=== PATIENT | male | born 1935 | race Caucasian/White ===

== ENCOUNTER 2019-02-06 15:45 | Emergency (ER) | payer MEDICARE ==
[~2019-02-06] VITALS: Ht 188 cm; Wt 88.6 kg
--- NOTE | 2019-02-06 17:13 | NUR ---
Pt reports pain to right ankle and top of foot that began this AM. Pt has full ROM. States pain subsides when walking and was able to go bowling this afternoon. Pain comes back when sitting still. No swelling noted. Pedal pulses palpable and skin is warm to the touch. cap refill <3 seconds. Pt has a hx of gout.
--- NOTE | 2019-02-06 17:34 | NUR ---
Doppler able to find faint dorsalis pedis pulse. Pt reports prior hx of poor vascular flow to RLE. States he has been seen for it before and MD did not think vascular intervention was necessary at the time.
[2019-02-06 19:42] VITALS: BP 193/75
== END 2019-02-06 19:44 | disposition home or self-care (01) ==
LOC: ER 15:46
DX: M25.571 Pain in right ankle and joints of right foot (principal); X50.1XXA Overexertion from prolonged static or awkward postures, initial encounter; Y93.89 Activity, other specified; Y92.89 Other specified places as the place of occurrence of the external cause; Y99.8 Other external cause status
CPT/HCPCS: 93971; 99284

== ENCOUNTER 2019-03-05 15:00 | Emergency (ER) | payer MEDICARE, OTHER ==
[~2019-03-05] VITALS: Ht 188 cm; Wt 90.0 kg
[2019-03-05 16:47] LABS: CLARITY,URINE CLOUDY (Clear); COLOR,URINE YELLOW (Yellow); GLUCOSE, URINE NEGATIVE (Neg); KETONES,URINE NEGATIVE (Neg); LEUKOCYTE ESTERASE ,URINE SMALL (Neg); NITRITES, URINE POSITIVE (Neg); OCCULT BLOOD,URINE LARGE (Neg); PROTEIN,URINE 100 mg/dl (Neg); UROBILINOGEN,URINE 0.2 E.U/dL (0.2-1.0)
[2019-03-05 16:50] LABS: UA COLLECTION TYPE URINAL
[2019-03-05 16:59] LABS: BACTERIA,URINE 2+ /HPF (Neg); RBC,URINE TNTC /HPF (0-2); SQUAMOUS EPITHELIAL CELL,UR FEW /LPF (FEW); WBC CLUMPS,URINE MANY /HPF (NEGATIVE); WBC,URINE TNTC /HPF (0-4)
[2019-03-05] MEDS ORDERED: cephalexin 250mg capsule PO ONE (17:10)
[2019-03-05] MEDS ORDERED: CEPH500C5 PO (17:11)
== END 2019-03-05 17:23 | disposition home or self-care (01) ==
LOC: ER 15:01
DX: N30.91 Cystitis, unspecified with hematuria (principal); N48.89 Other specified disorders of penis
CPT/HCPCS: 81001; 87077; 87088; 87186; 99283

== ENCOUNTER 2020-02-09 01:58 | Emergency (ER) | payer MEDICARE, OTHER ==
[~2020-02-09] VITALS: Ht 188 cm; Wt 88.2 kg
[~2020-02-09 01:58] MED LIST: CEPH500C5 PO
[2020-02-09 03:47] LABS: BASOPHILS % (AUTO) 0.3 % (0-1); EOSINOPHILS # (AUTO) 0.2 X10'3 (0-0.9); EOSINOPHILS % (AUTO) 4.1 % (0-6); HEMATOCRIT 42.9 % (42.0-52.0); HEMOGLOBIN 14.3 g/dl (14.0-17.9); LYMPHOCYTES % (AUTO) 35.7 % (21-51); MEAN CORPUSCULAR HEMOGLOBIN 29.5 PG (27.0-31.0); MEAN CORPUSCULAR HGB CONC 33.4 g/dL (33.0-36.5); MEAN CORPUSCULAR VOLUME 88.2 FL (78-98); MEAN PLATELET VOLUME 9.4 FL (7.4-10.4); MONOCYTES # (AUTO) 0.4 X10'3 (0-0.9); MONOCYTES % (AUTO) 6.9 % (2-12); PLATELET COUNT 139 X10'3 (140-440); RED BLOOD COUNT 4.86 X10'6 (4.70-6.10); RED CELL DISTRIBUTION WIDTH 14.2 % (11.5-14.5); WHITE BLOOD COUNT 5.6 X10'3 (4.5-11.0)
[2020-02-09 04:00] LABS: ALANINE AMINOTRANSFERASE 13 U/L (12-78); ALBUMIN 3.7 G/DL (3.4-5.0); ALBUMIN/GLOBULIN RATIO 0.9 (1.1-1.5); ALKALINE PHOSPHATASE 83 IU/L (46-116); ANION GAP 5 (8-16); ASPARTATE AMINO TRANSFERASE 23 U/L (10-37); BILIRUBIN,TOTAL 0.4 MG/DL (0.1-1.0); BLOOD UREA NITROGEN 35 MG/DL (7-18); BUN/CREATININE RATIO 16.4 (5.4-32.0); CHLORIDE 105 MMOL/L (99-107); CREATININE 2.13 MG/DL (0.60-1.10); GLUCOSE 107 MG/DL (70-104); POTASSIUM 4.2 MMOL/L (3.5-5.1); SODIUM 144 MMOL/L (135-145); TOTAL CARBON DIOXIDE 33.8 MMOL/L (24-32); TOTAL PROTEIN 7.7 G/DL (6.4-8.2); eGFR 30 ML/MIN
[2020-02-09 04:16] VITALS: BP 131/56
== END 2020-02-09 04:21 | disposition home or self-care (01) ==
LOC: ER 01:58
DX: N17.9 Acute kidney failure, unspecified (principal); N18.9 Chronic kidney disease, unspecified; I50.9 Heart failure, unspecified; M79.605 Pain in left leg; M79.604 Pain in right leg; R22.41 Localized swelling, mass and lump, right lower limb; R22.42 Localized swelling, mass and lump, left lower limb; Z79.899 Other long term (current) drug therapy
CPT/HCPCS: 36415; 80053; 83880; 84484; 85025; 99284; 99285

== ENCOUNTER 2020-02-15 22:58 | Emergency (ER) | payer MEDICARE, OTHER ==
[~2020-02-15] VITALS: Ht 188 cm; Wt 88.3 kg
[2020-02-15] MEDS ORDERED: TRAM50TA2 PO (23:32)
[2020-02-15 23:45] VITALS: BP 145/78
== END 2020-02-15 23:46 | disposition home or self-care (01) ==
LOC: ER 22:58
DX: M25.561 Pain in right knee (principal); M25.562 Pain in left knee; M25.572 Pain in left ankle and joints of left foot; M25.571 Pain in right ankle and joints of right foot; Z79.2 Long term (current) use of antibiotics; Z79.899 Other long term (current) drug therapy
CPT/HCPCS: 99284

== ENCOUNTER 2020-02-21 13:05 | Emergency (ER) | payer MEDICARE, OTHER ==
[~2020-02-21] VITALS: Ht 188 cm; Wt 93.6 kg
[2020-02-21 13:45] VITALS: BP 177/70
== END 2020-02-21 14:12 | disposition home or self-care (01) ==
LOC: ER 13:05
DX: M70.52 Other bursitis of knee, left knee (principal); M10.9 Gout, unspecified
CPT/HCPCS: 99281

== ENCOUNTER 2020-02-27 01:21 | Emergency (ER) | payer MEDICARE, OTHER ==
[~2020-02-27] VITALS: Ht 188 cm; Wt 95.0 kg
[2020-02-27 01:52] LABS: BASOPHILS % (AUTO) 0.4 % (0-1); EOSINOPHILS # (AUTO) 0.2 X10'3 (0-0.9); EOSINOPHILS % (AUTO) 3.9 % (0-6); HEMATOCRIT 39.4 % (42.0-52.0); HEMOGLOBIN 13.3 g/dl (14.0-17.9); LYMPHOCYTES # (AUTO) 2.6 X10'3 (1.1-4.8); LYMPHOCYTES % (AUTO) 45.1 % (21-51); MEAN CORPUSCULAR HEMOGLOBIN 30.2 PG (27.0-31.0); MEAN CORPUSCULAR HGB CONC 33.8 g/dL (33.0-36.5); MEAN CORPUSCULAR VOLUME 89.2 FL (78-98); MEAN PLATELET VOLUME 9.1 FL (7.4-10.4); MONOCYTES # (AUTO) 0.5 X10'3 (0-0.9); MONOCYTES % (AUTO) 7.7 % (2-12); NEUTROPHILS # (AUTO) 2.5 X10'3 (1.8-7.7); NEUTROPHILS % (AUTO) 42.9 % (42-75); PLATELET COUNT 169 X10'3 (140-440); RED BLOOD COUNT 4.41 X10'6 (4.70-6.10); RED CELL DISTRIBUTION WIDTH 14.5 % (11.5-14.5); WHITE BLOOD COUNT 5.8 X10'3 (4.5-11.0)
[2020-02-27 02:04] LABS: ALANINE AMINOTRANSFERASE 16 U/L (12-78); ALBUMIN 3.6 G/DL (3.4-5.0); ALBUMIN/GLOBULIN RATIO 0.9 (1.1-1.5); ANION GAP 12 (8-16); ASPARTATE AMINO TRANSFERASE 16 U/L (10-37); BILIRUBIN,TOTAL 0.5 MG/DL (0.1-1.0); BLOOD UREA NITROGEN 22 MG/DL (7-18); BUN/CREATININE RATIO 11.8 (5.4-32.0); CALCIUM 8.6 MG/DL (8.5-10.1); CHLORIDE 104 MMOL/L (99-107); CREATININE 1.87 MG/DL (0.60-1.10); GLUCOSE 116 MG/DL (70-104); POTASSIUM 3.6 MMOL/L (3.5-5.1); SODIUM 145 MMOL/L (135-145); TOTAL CARBON DIOXIDE 29.1 MMOL/L (24-32); TOTAL PROTEIN 7.6 G/DL (6.4-8.2); eGFR 34 ML/MIN
[2020-02-27 02:29] LABS: ALKALINE PHOSPHATASE 86 IU/L (46-116)
[2020-02-27] MEDS ORDERED: FURO-150 PO (02:32)
[2020-02-27] MEDS ORDERED: POTA20TA19 PO (02:32)
[2020-02-27 02:38] VITALS: BP 178/63
== END 2020-02-27 02:45 | disposition home or self-care (01) ==
LOC: ER 01:21
DX: N18.9 Chronic kidney disease, unspecified (principal); R60.0 Localized edema; M10.9 Gout, unspecified; Z79.899 Other long term (current) drug therapy
CPT/HCPCS: 36415; 80053; 85025; 93971; 99284

== ENCOUNTER 2020-03-05 22:09 | Emergency (ER) | payer MEDICARE, OTHER ==
[~2020-03-05] VITALS: Ht 188 cm; Wt 89.5 kg
[~2020-03-05 22:09] MED LIST changes: +FURO-150 PO; +POTA20TA19 PO
--- NOTE | 2020-03-05 23:18 | NUR ---
awaiting provider, vs updated
[2020-03-05 23:58] LABS: BASOPHILS % (AUTO) 0.4 % (0-1); EOSINOPHILS # (AUTO) 0.1 X10'3 (0-0.9); EOSINOPHILS % (AUTO) 1.6 % (0-6); HEMATOCRIT 37.4 % (42.0-52.0); HEMOGLOBIN 12.8 g/dl (14.0-17.9); LYMPHOCYTES % (AUTO) 27.5 % (21-51); MEAN CORPUSCULAR HEMOGLOBIN 30.1 PG (27.0-31.0); MEAN CORPUSCULAR HGB CONC 34.2 g/dL (33.0-36.5); MEAN CORPUSCULAR VOLUME 87.9 FL (78-98); MEAN PLATELET VOLUME 9.4 FL (7.4-10.4); MONOCYTES # (AUTO) 0.4 X10'3 (0-0.9); NEUTROPHILS # (AUTO) 4.7 X10'3 (1.8-7.7); NEUTROPHILS % (AUTO) 64.5 % (42-75); PLATELET COUNT 155 X10'3 (140-440); RED BLOOD COUNT 4.26 X10'6 (4.70-6.10); RED CELL DISTRIBUTION WIDTH 14.2 % (11.5-14.5); WHITE BLOOD COUNT 7.3 X10'3 (4.5-11.0)
[2020-03-06 00:18] LABS: ALANINE AMINOTRANSFERASE 19 U/L (12-78); ALBUMIN 3.5 G/DL (3.4-5.0); ALBUMIN/GLOBULIN RATIO 0.9 (1.1-1.5); ANION GAP 8 (8-16); ASPARTATE AMINO TRANSFERASE 14 U/L (10-37); BILIRUBIN,TOTAL 0.3 MG/DL (0.1-1.0); BLOOD UREA NITROGEN 29 MG/DL (7-18); BUN/CREATININE RATIO 14.4 (5.4-32.0); CALCIUM 8.8 MG/DL (8.5-10.1); CHLORIDE 106 MMOL/L (99-107); CREATININE 2.02 MG/DL (0.60-1.10); GLUCOSE 106 MG/DL (70-104); POTASSIUM 3.8 MMOL/L (3.5-5.1); SODIUM 143 MMOL/L (135-145); TOTAL CARBON DIOXIDE 28.9 MMOL/L (24-32); TOTAL PROTEIN 7.3 G/DL (6.4-8.2); eGFR 32 ML/MIN
[2020-03-06 00:21] LABS: PARTIAL THROMBOPLASTIN TIME 26 SECONDS (22-32)
[2020-03-06 00:33] LABS: ALKALINE PHOSPHATASE 83 IU/L (46-116)
[2020-03-06 01:09] VITALS: BP 169/61
== END 2020-03-06 01:11 | disposition home or self-care (01) ==
LOC: ER 22:10
DX: J02.9 Acute pharyngitis, unspecified (principal); M79.89 Other specified soft tissue disorders; M10.9 Gout, unspecified; I50.9 Heart failure, unspecified; N18.9 Chronic kidney disease, unspecified; Z79.899 Other long term (current) drug therapy
CPT/HCPCS: 36415; 80053; 83735; 83880; 84443; 85025; 85610; 85730; 87081; 87880; 99283

== ENCOUNTER 2021-02-25 13:54 | Emergency (ER) | payer MEDICARE, OTHER ==
[~2021-02-25 13:54] MED LIST changes: +ALLO100T PO; +ATOR40TA72 PO; -CEPH500C5 PO; +CLON0.3T PO; +CLOP75TA34 PO; -FURO-150 PO; +FURO40TA4 PO; +LISI20TA28 PO; +LORA-268 PO; +POTA10TA PO; -POTA20TA19 PO
[2021-02-25 14:45] VITALS: BP 141/51
[2021-02-25 15:05] LABS: CLARITY,URINE CLOUDY (Clear); COLOR,URINE YELLOW (Yellow); GLUCOSE, URINE NEGATIVE (Neg); KETONES,URINE NEGATIVE (Neg); LEUKOCYTE ESTERASE ,URINE MODERATE (Neg); NITRITES, URINE NEGATIVE (Neg); OCCULT BLOOD,URINE LARGE (Neg); PH,URINE 6.5 (4.8-8.0); PROTEIN,URINE >=300 mg/dl (Neg)
[2021-02-25 15:28] LABS: UA COLLECTION TYPE CLN CATCH MIDSTREAM
[2021-02-25 15:29] LABS: BACTERIA,URINE FEW /HPF (Neg); MUCUS STRANDS NONE SEEN /LPF (Neg); RBC,URINE TNTC /HPF (0-2); SQUAMOUS EPITHELIAL CELL,UR FEW /LPF (FEW); WBC,URINE TNTC /HPF (0-4)
[2021-02-25] MEDS ORDERED: DOXY100C76 PO (16:16)
== END 2021-02-25 16:21 | disposition home or self-care (01) ==
LOC: ER 13:54
DX: N30.90 Cystitis, unspecified without hematuria (principal); I50.9 Heart failure, unspecified; I11.0 Hypertensive heart disease with heart failure; R31.9 Hematuria, unspecified; R30.0 Dysuria; M10.9 Gout, unspecified; Z88.8 Allergy status to other drugs, medicaments and biological substances; Z79.2 Long term (current) use of antibiotics; Z79.899 Other long term (current) drug therapy
CPT/HCPCS: 81001; 87077; 87088; 87186; 99283

== ENCOUNTER 2021-05-11 10:21 | Inpatient (IN) | payer MEDICARE, OTHER ==
[2021-05-06 16:51] LABS: BASOPHILS % (AUTO) 0.4 % (0-1); EOSINOPHILS # (AUTO) 0.2 X10'3 (0-0.9); EOSINOPHILS % (AUTO) 4.6 % (0-6); LYMPHOCYTES # (AUTO) 2.7 X10'3 (1.1-4.8); LYMPHOCYTES % (AUTO) 58.8 % (21-51); MEAN CORPUSCULAR HGB CONC 33.2 g/dL (33.0-36.5); MEAN CORPUSCULAR VOLUME 84.4 FL (78-98); MEAN PLATELET VOLUME 9.5 FL (7.4-10.4); MONOCYTES # (AUTO) 0.3 X10'3 (0-0.9); MONOCYTES % (AUTO) 7.3 % (2-12); NEUTROPHILS # (AUTO) 1.3 X10'3 (1.8-7.7); NEUTROPHILS % (AUTO) 28.9 % (42-75); PRE OP HEMATOCRIT 35.9 % (42.0-52.0); PRE OP HEMOGLOBIN 11.9 g/dL (14.0-17.9); PRE OP PLATELET COUNT 125 X10'3 (140-440); RED BLOOD COUNT 4.26 X10'6 (4.70-6.10); RED CELL DISTRIBUTION WIDTH 18.7 % (11.5-14.5)
[2021-05-06 16:58] LABS: CLARITY,URINE CLEAR (Clear); COLOR,URINE STRAW (Yellow); GLUCOSE, URINE NEGATIVE (Neg); KETONES,URINE NEGATIVE (Neg); LEUKOCYTE ESTERASE ,URINE TRACE (Neg); NITRITES, URINE NEGATIVE (Neg); OCCULT BLOOD,URINE NEGATIVE (Neg); PROTEIN,URINE NEGATIVE (Neg); UROBILINOGEN,URINE 0.2 E.U/dL (0.2-1.0)
[2021-05-06 17:01] LABS: UA COLLECTION TYPE CLN CATCH MIDSTREAM
[2021-05-06 17:02] LABS: ALBUMIN 3.8 G/DL (3.4-5.0); ALKALINE PHOSPHATASE 120 IU/L (46-116); BLOOD UREA NITROGEN 36 MG/DL (7-18); BUN/CREATININE RATIO 22.4 (5.4-32.0); CALCIUM 8.7 MG/DL (8.5-10.1); CHLORIDE 105 MMOL/L (99-107); CREATININE 1.61 MG/DL (0.60-1.10); PRE OP ALT 13 U/L (30-65); PRE OP ANION GAP 8 (8-16); PRE OP AST 13 U/L (10-37); PRE OP BILIRUB, TOTAL 0.6 MG/DL (0.0-1.0); PRE OP GLUCOSE 99 MG/DL (70-104); PRE OP POTASSIUM 4.5 MMOL/L (3.4-5.1); PRE OP SODIUM 143 MMOL/L (135-145); TOTAL CARBON DIOXIDE 30.3 MMOL/L (24-32); TOTAL PROTEIN 7.5 G/DL (6.4-8.2); eGFR 41 ML/MIN
[2021-05-06 17:03] LABS: BACTERIA,URINE FEW /HPF (Neg); MUCUS STRANDS NONE SEEN /LPF (Neg); RBC,URINE 0-2 /HPF (0-2); SQUAMOUS EPITHELIAL CELL,UR FEW /LPF (FEW); WBC,URINE 0-4 /HPF (0-4)
[2021-05-06 17:28] LABS: ANISOCYTOSIS 2+; ELLIPTOCYTES 1+; MICROCYTOSIS 1+; PLATELET ESTIMATE DECREASED; POIKILOCYTOSIS FEW
[~2021-05-11] VITALS: Ht 188 cm; Wt 76.0 kg
[2021-05-11] VITALS (8 sets, daily range): BP systolic 130–192; BP diastolic 46–75
[~2021-05-11 10:21] MED LIST changes: -CLOP75TA34 PO; +cefazolin/dext.iso 2gm/100ml IV ONE; +dry eye drops; +famotidine 20mg tablet PO ONE; +ringers solution, lacted 1,000 ML IV SCH
[2021-05-11] MEDS ORDERED: BUPIVAcaine 0.5% inj/PF 30 ML ONE (15:18)
[2021-05-11] MEDS ORDERED: fentaNYL/PF 50MCG/1 ML 2ML syringe ONE (15:23)
[2021-05-11] MEDS ORDERED: midazolam 1 mg/ML 2ml injection ONE (15:23)
[2021-05-11] MEDS ORDERED: glycopyrrolate 0.2mg/ml inj ONE (15:24)
[2021-05-11] MEDS ORDERED: etomidate 2mg/ml inj. ONE (15:24)
[2021-05-11] MEDS ORDERED: rocuronium 10mg/ml inj IV ONE (15:24)
[2021-05-11] MEDS ORDERED: ondansetron/PF 4mg/2ml inj ONE (15:24)
[2021-05-11] MEDS ORDERED: ondansetron/PF 4mg/2ml inj IV PRN (15:35)
[2021-05-11] MEDS ORDERED: ringers solution, lacted 1,000 ML IV SCH (15:35)
[2021-05-11] MEDS ORDERED: morphine 2 MG/ML inj. syringe IV PRN (15:35)
[2021-05-11] MEDS ORDERED: fentaNYL/PF 50MCG/1 ML 2ML syringe IV PRN ×2 (15:35)
[2021-05-11] MEDS ORDERED: morphine 4 MG/ML inj SYRINge IV PRN (15:35)
[2021-05-11] MEDS ORDERED: enalaprilat dihydrate 2.5mg/2ml vial IV PRN (15:35)
[2021-05-11] MEDS ORDERED: hydrALAZINE 20mg/ml inj. IV PRN (15:35)
[2021-05-11] MEDS ORDERED: BUPIVAcaine 0.5% inj/PF 30 ml vial IJ ONE (16:14)
[2021-05-11] MEDS ORDERED: labetalol 20mg/4ml (5mg/ml) syringe IV ONE (16:54)
--- NOTE | 2021-05-11 16:55 | NUR ---
ADMITTED TO PACU FROM OR ACCOMPANIED BY ANESTHESIA. INTIAL PHYSICAL ASSESSMENT DONE AND RECORDED. REPORT RECEIVED FROM ANESTHESIA.
--- NOTE | 2021-05-11 17:10 | NUR ---
DIFFICULT EMERGENCE FROM ANESTHESIA, IV PULLED OUT ATTEMPTS TO RESTART UNSUCCESSFUL. BP GRADUALLY DECREASING. BECOMING MORE ORIENTED TO TIME AND PLACE.
[2021-05-11] MEDS ORDERED: HYDROcodone/acetaminophen 10/325mg tab PO ONE (17:30)
[2021-05-11] MEDS ORDERED: HYDROcodone/acetaminophen 10/325mg tab PO PRN (17:55)
--- NOTE | 2021-05-11 18:20 | NUR ---
PACU DISCHARGE CRITERIA MET, REPORT GIVEN TO FLOOR. DENIES PAIN OR DISCOMFORT. PT IS STABLE AND ADEQUATELY RECOVERED FROM ANESTHESIA. PT HAS STABLE AIRWAY PATENCY, RESPIRATORY FUNCTION TO INCLUDE RESPIRATORY RATE AND O2 SAT. HEART RATE, BLOOD PRESSURE STABLE AND HYDRATION ADEQUATE. MENTAL STATUS IS APPROPRIATE. PAIN AND NAUSEA CONTROLLED. REFER TO PACU SPREADSHEET FOR VITAL SIGNS. SPOKE WITH PT , IS AWARE WILL BE DISCHARGED AFTER 2200, AND FLOOR WILL CALL.
--- NOTE | 2021-05-11 19:22 | NUR ---
Patient in room ORTHO 4022. I have received report from Nat YADAV and had the opportunity to ask questions and assume patient care.
--- NOTE | 2021-05-11 21:07 | NUR ---
Patient is still attempting to urinate at this time, called patients and daughter to let them know to leave their home around [phone] as they live in [place] and that I would have him ready to go regardless of if he needs a catheter or not.
--- NOTE | 2021-05-11 22:13 | NUR ---
Patient discharged to home via private vehicle. Patient was retaining urine and required a chavez catheter to be placed. Placed a leg bag and educated the patient and his daughter how to empty it and when. They verbalized understanding. Also discussed the need to follow up with Dr. Krishnamurthy in two days time to have the catheter removed. Went over activity restrictions; not lifting >20 lbs for four weeks. Also discussed splinting abdomen when he gets up from a seated position and recommended taking a stool softener if he is going to be taking narcotic pain medications. Patient was taken out in a wheelchair with no complications
== END 2021-05-11 22:05 | disposition home or self-care (01) | DRG 352 ==
LOC: PAS 10:21 → ORTHO 4S 18:26
PROVIDERS: ADMIT Surgery; ATTEND Surgery
PROC: 0YUA4JZ Supplement Bilateral Inguinal Region with Synthetic Substitute, Percutaneous Endoscopic Approach (ICD-10-PCS; principal; 2021-05-11 15:31)
DX: K40.20 Bilateral inguinal hernia, without obstruction or gangrene, not specified as recurrent (principal); I83.90 Asymptomatic varicose veins of unspecified lower extremity; Z20.822 Contact with and (suspected) exposure to COVID-19; M10.9 Gout, unspecified; R03.0 Elevated blood-pressure reading, without diagnosis of hypertension; R31.9 Hematuria, unspecified; R35.1 Nocturia
CPT/HCPCS: 36415; 80053; 81001; 82948; 85008; 85025; 87088; 87635; A4215; A4314; A4618; A6258; C1781; C9803; G0378; J2250; J2405; J3010; J3490; J7120

== ENCOUNTER 2021-05-18 19:56 | Emergency (ER) | payer MEDICARE, OTHER ==
[~2021-05-18] VITALS: Ht 188 cm; Wt 75.0 kg
[~2021-05-18 19:56] MED LIST changes: -cefazolin/dext.iso 2gm/100ml IV ONE; -famotidine 20mg tablet PO ONE; -ringers solution, lacted 1,000 ML IV SCH
[2021-05-18 21:14] LABS: ALANINE AMINOTRANSFERASE 15 U/L (12-78); ALBUMIN 3.6 G/DL (3.4-5.0); ALKALINE PHOSPHATASE 97 IU/L (46-116); ANION GAP 12 (8-16); ASPARTATE AMINO TRANSFERASE 10 U/L (10-37); BLOOD UREA NITROGEN 58 MG/DL (7-18); CALCIUM 8.1 MG/DL (8.5-10.1); CHLORIDE 102 MMOL/L (99-107); CREATININE 2.64 MG/DL (0.60-1.10); GLUCOSE 107 MG/DL (70-104); POTASSIUM 4.5 MMOL/L (3.5-5.1); SODIUM 142 MMOL/L (135-145); TOTAL CARBON DIOXIDE 27.9 MMOL/L (24-32); TOTAL PROTEIN 7.3 G/DL (6.4-8.2); eGFR 23 ML/MIN
[2021-05-18 21:18] LABS: BASOPHILS % (AUTO) 0.2 % (0-1); EOSINOPHILS # (AUTO) 0.2 X10'3 (0-0.9); HEMATOCRIT 31.9 % (42.0-52.0); HEMOGLOBIN 10.7 g/dl (14.0-17.9); LYMPHOCYTES # (AUTO) 2.3 X10'3 (1.1-4.8); LYMPHOCYTES % (AUTO) 35.1 % (21-51); MEAN CORPUSCULAR HEMOGLOBIN 28.6 PG (27.0-31.0); MEAN CORPUSCULAR HGB CONC 33.5 g/dL (33.0-36.5); MEAN CORPUSCULAR VOLUME 85.4 FL (78-98); MEAN PLATELET VOLUME 9.9 FL (7.4-10.4); MONOCYTES # (AUTO) 0.5 X10'3 (0-0.9); NEUTROPHILS # (AUTO) 3.5 X10'3 (1.8-7.7); NEUTROPHILS % (AUTO) 53.7 % (42-75); PLATELET COUNT 130 X10'3 (140-440); RED BLOOD COUNT 3.74 X10'6 (4.70-6.10); RED CELL DISTRIBUTION WIDTH 19.4 % (11.5-14.5); WHITE BLOOD COUNT 6.5 X10'3 (4.5-11.0)
[2021-05-18 22:31] LABS: PLATELET ESTIMATE DECREASED
[2021-05-18 22:32] LABS: ANISOCYTOSIS 2+; BURR CELLS 2+; ELLIPTOCYTES 1+; SCHISTOCYTES 1+
[2021-05-19] MEDS ORDERED: normal saline 1000ml 1,000 ML IV ONE (01:30)
[2021-05-19 02:49] VITALS: BP 108/37
== END 2021-05-19 03:01 | disposition home or self-care (01) ==
LOC: ER 19:57
DX: N17.9 Acute kidney failure, unspecified (principal); M54.5 Low back pain; R20.0 Anesthesia of skin; I11.0 Hypertensive heart disease with heart failure; I50.9 Heart failure, unspecified; M10.9 Gout, unspecified; Z79.899 Other long term (current) drug therapy
CPT/HCPCS: 36415; 80053; 85008; 85025; 96360; 99283; J7030

== ENCOUNTER 2021-09-22 16:54 | Emergency (ER) | payer MEDICARE, OTHER ==
[~2021-09-22] VITALS: Ht 188 cm; Wt 73.0 kg
[2021-09-22 17:34] LABS: CLARITY,URINE SLIGHTLY CLOUDY (Clear); COLOR,URINE STRAW (Yellow); GLUCOSE, URINE NEGATIVE (Neg); KETONES,URINE NEGATIVE (Neg); LEUKOCYTE ESTERASE ,URINE MODERATE (Neg); NITRITES, URINE NEGATIVE (Neg); OCCULT BLOOD,URINE LARGE (Neg); PROTEIN,URINE NEGATIVE (Neg); UA COLLECTION TYPE CLN CATCH MIDSTREAM
[2021-09-22 17:46] LABS: BASOPHILS % (AUTO) 0.3 % (0-1); EOSINOPHILS # (AUTO) 0.2 X10'3 (0-0.9); EOSINOPHILS % (AUTO) 3.8 % (0-6); HEMATOCRIT 35.3 % (42.0-52.0); HEMOGLOBIN 11.9 g/dl (14.0-17.9); LYMPHOCYTES # (AUTO) 2.2 X10'3 (1.1-4.8); LYMPHOCYTES % (AUTO) 45.6 % (21-51); MEAN CORPUSCULAR HEMOGLOBIN 28.9 PG (27.0-31.0); MEAN CORPUSCULAR HGB CONC 33.7 g/dL (33.0-36.5); MEAN CORPUSCULAR VOLUME 85.5 FL (78-98); MEAN PLATELET VOLUME 9.7 FL (7.4-10.4); MONOCYTES # (AUTO) 0.3 X10'3 (0-0.9); NEUTROPHILS # (AUTO) 2.2 X10'3 (1.8-7.7); NEUTROPHILS % (AUTO) 44.3 % (42-75); PLATELET COUNT 104 X10'3 (140-440); RED BLOOD COUNT 4.13 X10'6 (4.70-6.10); WHITE BLOOD COUNT 4.9 X10'3 (4.5-11.0)
[2021-09-22 17:49] LABS: BACTERIA,URINE 1+ /HPF (Neg); TRANSITIONAL EPI CELLS,URINE FEW /HPF
[2021-09-22 17:53] LABS: RENAL CELLS, URINE MODERATE /HPF; SQUAMOUS EPITHELIAL CELL,UR FEW /LPF (FEW)
[2021-09-22 17:54] LABS: WBC,URINE 30-50 /HPF (0-4)
[2021-09-22 17:56] LABS: WBC CLUMPS,URINE MODERATE /HPF (NEGATIVE)
[2021-09-22 18:09] LABS: ALANINE AMINOTRANSFERASE 19 U/L (12-78); ALBUMIN 3.7 G/DL (3.4-5.0); ALKALINE PHOSPHATASE 102 IU/L (46-116); ANION GAP 10 (8-16); ASPARTATE AMINO TRANSFERASE 16 U/L (10-37); BILIRUBIN,TOTAL 0.6 MG/DL (0.1-1.0); BLOOD UREA NITROGEN 33 MG/DL (7-18); BUN/CREATININE RATIO 19.3 (5.4-32.0); CALCIUM 8.7 MG/DL (8.5-10.1); CHLORIDE 103 MMOL/L (99-107); CREATININE 1.71 MG/DL (0.60-1.10); GLUCOSE 124 MG/DL (70-104); POTASSIUM 3.8 MMOL/L (3.5-5.1); SODIUM 143 MMOL/L (135-145); TOTAL PROTEIN 7.3 G/DL (6.4-8.2); eGFR 38 ML/MIN
[2021-09-22] MEDS ORDERED: CIPR-259 PO (20:33)
[2021-09-22] MEDS ORDERED: ciprofloxacin 250mg tablet PO ONE (20:40)
--- NOTE | 2021-09-22 20:41 | NUR ---
assumed care of patient. see MAR
[2021-09-22 20:53] VITALS: BP 168/92
== END 2021-09-22 20:58 | disposition home or self-care (01) ==
LOC: ER 16:54
DX: N39.0 Urinary tract infection, site not specified (principal); R30.0 Dysuria; R31.9 Hematuria, unspecified; I11.0 Hypertensive heart disease with heart failure; I50.9 Heart failure, unspecified; M10.9 Gout, unspecified; Z87.440 Personal history of urinary (tract) infections; Z60.2 Problems related to living alone; Z79.2 Long term (current) use of antibiotics; Z79.899 Other long term (current) drug therapy
CPT/HCPCS: 36415; 74176; 80053; 81001; 85025; 87077; 87088; 87186; 99284

== ENCOUNTER 2021-11-28 15:37 | Emergency (ER) | payer MEDICARE, OTHER ==
[~2021-11-28] VITALS: Ht 182.9 cm; Wt 77.1 kg
[~2021-11-28 15:37] MED LIST changes: +CEPH250T PO
[2021-11-28 15:51] VITALS: BP 187/61
[2021-11-28 16:49] LABS: HEMOGLOBIN 11.2 g/dl (14.0-17.9); WHITE BLOOD COUNT 3.3 X10'3 (4.5-11.0)
[2021-11-28 16:51] LABS: BASOPHILS % (AUTO) 0.3 % (0-1); EOSINOPHILS # (AUTO) 0.1 X10'3 (0-0.9); EOSINOPHILS % (AUTO) 2.1 % (0-6); HEMATOCRIT 33.6 % (42.0-52.0); LYMPHOCYTES # (AUTO) 1.4 X10'3 (1.1-4.8); LYMPHOCYTES % (AUTO) 43.6 % (21-51); MEAN CORPUSCULAR HEMOGLOBIN 28.8 PG (27.0-31.0); MEAN CORPUSCULAR HGB CONC 33.4 g/dL (33.0-36.5); MEAN CORPUSCULAR VOLUME 86.5 FL (78-98); MEAN PLATELET VOLUME 9.6 FL (7.4-10.4); MONOCYTES # (AUTO) 0.2 X10'3 (0-0.9); MONOCYTES % (AUTO) 5.7 % (2-12); NEUTROPHILS # (AUTO) 1.6 X10'3 (1.8-7.7); NEUTROPHILS % (AUTO) 48.3 % (42-75); PLATELET COUNT 116 X10'3 (140-440); RED BLOOD COUNT 3.88 X10'6 (4.70-6.10); RED CELL DISTRIBUTION WIDTH 18.2 % (11.5-14.5)
[2021-11-28 16:55] LABS: ALANINE AMINOTRANSFERASE 20 U/L (12-78); ALBUMIN 3.8 G/DL (3.4-5.0); ALBUMIN/GLOBULIN RATIO 1.2 (1.1-1.5); ALKALINE PHOSPHATASE 104 IU/L (46-116); ANION GAP 10 (8-16); ASPARTATE AMINO TRANSFERASE 21 U/L (10-37); BILIRUBIN,TOTAL 0.5 MG/DL (0.1-1.0); BLOOD UREA NITROGEN 41 MG/DL (7-18); BUN/CREATININE RATIO 24.1 (5.4-32.0); CALCIUM 8.5 MG/DL (8.5-10.1); CHLORIDE 107 MMOL/L (99-107); GLUCOSE 137 MG/DL (70-104); POTASSIUM 4.3 MMOL/L (3.5-5.1); SODIUM 144 MMOL/L (135-145); TOTAL PROTEIN 7.1 G/DL (6.4-8.2); eGFR 38 ML/MIN
[2021-11-28] MEDS ORDERED: CEPH250T PO (19:13)
[2021-11-28] MEDS ORDERED: cephalexin 250mg capsule PO ONE (19:15)
== END 2021-11-28 19:42 | disposition home or self-care (01) ==
LOC: ER 15:37
DX: R60.0 Localized edema (principal); L03.116 Cellulitis of left lower limb; L03.115 Cellulitis of right lower limb; I11.0 Hypertensive heart disease with heart failure; I50.9 Heart failure, unspecified; Z87.440 Personal history of urinary (tract) infections; M10.9 Gout, unspecified; Z79.899 Other long term (current) drug therapy; Z79.2 Long term (current) use of antibiotics
CPT/HCPCS: 36415; 80053; 85025; 85651; 99283

== ENCOUNTER 2021-12-14 06:42 | Inpatient (IN) | payer MEDICARE, OTHER ==
[2021-12-08 15:23] LABS: BASOPHILS % (AUTO) 0.4 % (0-1); EOSINOPHILS # (AUTO) 0.2 X10'3 (0-0.9); EOSINOPHILS % (AUTO) 4.7 % (0-6); LYMPHOCYTES % (AUTO) 53.1 % (21-51); MEAN CORPUSCULAR HEMOGLOBIN 28.8 PG (27.0-31.0); MEAN CORPUSCULAR HGB CONC 33.1 g/dL (33.0-36.5); MEAN CORPUSCULAR VOLUME 87.3 FL (78-98); MEAN PLATELET VOLUME 9.4 FL (7.4-10.4); MONOCYTES # (AUTO) 0.3 X10'3 (0-0.9); MONOCYTES % (AUTO) 7.6 % (2-12); NEUTROPHILS # (AUTO) 1.3 X10'3 (1.8-7.7); NEUTROPHILS % (AUTO) 34.2 % (42-75); PRE OP HEMATOCRIT 34.8 % (42.0-52.0); PRE OP HEMOGLOBIN 11.5 g/dL (14.0-17.9); PRE OP PLATELET COUNT 124 X10'3 (140-440); RED BLOOD COUNT 3.99 X10'6 (4.70-6.10); RED CELL DISTRIBUTION WIDTH 18.2 % (11.5-14.5)
[2021-12-08 15:31] LABS: CLARITY,URINE CLEAR (Clear); COLOR,URINE YELLOW (Yellow); GLUCOSE, URINE NEGATIVE (Neg); KETONES,URINE NEGATIVE (Neg); LEUKOCYTE ESTERASE ,URINE NEGATIVE (Neg); NITRITES, URINE NEGATIVE (Neg); OCCULT BLOOD,URINE NEGATIVE (Neg); PH,URINE 6.5 (4.8-8.0); PROTEIN,URINE NEGATIVE (Neg); UROBILINOGEN,URINE 0.2 E.U/dL (0.2-1.0)
[2021-12-08 15:31] LABS: PRE OP PROTIME 10.3 SECONDS (9.0-12.0)
[2021-12-08 15:37] LABS: ALBUMIN 3.6 G/DL (3.4-5.0); ALBUMIN/GLOBULIN RATIO 0.9 (1.1-1.5); ALKALINE PHOSPHATASE 104 IU/L (46-116); BLOOD UREA NITROGEN 31 MG/DL (7-18); BUN/CREATININE RATIO 20.4 (5.4-32.0); CALCIUM 8.5 MG/DL (8.5-10.1); CHLORIDE 104 MMOL/L (99-107); CREATININE 1.52 MG/DL (0.60-1.10); PRE OP ALT 17 U/L (30-65); PRE OP ANION GAP 9 (8-16); PRE OP AST 13 U/L (10-37); PRE OP BILIRUB, TOTAL 0.5 MG/DL (0.0-1.0); PRE OP GLUCOSE 100 MG/DL (70-104); PRE OP POTASSIUM 4.1 MMOL/L (3.4-5.1); PRE OP SODIUM 142 MMOL/L (135-145); TOTAL CARBON DIOXIDE 28.8 MMOL/L (24-32); TOTAL PROTEIN 7.5 G/DL (6.4-8.2); eGFR 44 ML/MIN
[2021-12-08 15:39] LABS: UA COLLECTION TYPE CLN CATCH MIDSTREAM
[2021-12-08 15:44] LABS: ANISOCYTOSIS 2+; PLATELET ESTIMATE DECREASED; TOTAL CELLS COUNTED 100
[~2021-12-14] VITALS: Ht 188 cm; Wt 79.7 kg
[2021-12-14] VITALS (19 sets, daily range): BP systolic 109–159; BP diastolic 36–72
[~2021-12-14 06:42] MED LIST changes: -CEPH250T PO; +FURO-149 PO; -FURO40TA4 PO; +PROP10DR4 OP; +cefazolin/dext.iso 2gm/50ml IV ONE; -dry eye drops; +famotidine 20mg tablet PO ONE; +nitroPRUSSIDE (NIPRIDE) (200MCG/ML) 100ML Drip IV SCH
[2021-12-14] MEDS: phenylephrine 50 MG in NS 250ml IVPB IV SCH (08:00)
[2021-12-14] MEDS: ringers solution, lacted 1,000 ML IV SCH ×2 (08:12→15:48)
--- NOTE | 2021-12-14 09:00 | NUR ---
DR BOONE NOTIFIED OF BILATERAL LEG REDNESS, SWELLING AND SORES. NOTIFIED THAT PT TOOK A DOUBLE DOSE OF HIS AM BLOOD PRESSURE MEDICATION CLONIDINE. NOTIFIED OF ABNORMAL LABS - PLATELETS WERE 124, CR WAS 1.52 AND BUN 31. Addendum: 12/14/21 at 1057 by Gaby Ulloa RN Amended: Links added.
[2021-12-14] MEDS ORDERED: LIDOcaine 1% (10mg/ml)w/preservative inj. 20ml MDV ONE (09:43)
[2021-12-14] MEDS ORDERED: heparin 10,000 units/1 ML INJ ONE (09:43)
[2021-12-14] MEDS ORDERED: protamine sulfate 10mg/ml inj. ONE (09:45)
[2021-12-14] MEDS ORDERED: LIDOcaine 1% (10mg/ml) 2ml vial ONE (10:09)
[2021-12-14] MEDS ORDERED: dexamethasone sod phosphate 10mg/ml inj ONE (10:40)
[2021-12-14] MEDS ORDERED: desflurane 240ml liquid inh. IH ONE (10:40)
[2021-12-14] MEDS ORDERED: midazolam 1 mg/ML 2ml injection ONE (10:49)
[2021-12-14] MEDS ORDERED: FENTANYL CITRATE/PF 50 MCG/1 ML VIAL ONE (10:49)
[2021-12-14] MEDS ORDERED: etomidate 2mg/ml inj. ONE (10:50)
[2021-12-14] MEDS ORDERED: rocuronium 10mg/ml inj IV ONE (10:50)
[2021-12-14] MEDS ORDERED: ePHEDrine 50MG/ML INJ. ONE (11:11)
[2021-12-14] MEDS ORDERED: ondansetron/PF 4mg/2ml inj ONE (11:14)
[2021-12-14] MEDS ORDERED: morphine 2 MG/ML inj. syringe IV PRN (11:30)
[2021-12-14] MEDS ORDERED: ringers solution, lacted 1,000 ML IV SCH (11:30)
[2021-12-14] MEDS ORDERED: morphine 4 MG/ML inj SYRINge IV PRN (11:30)
[2021-12-14] MEDS ORDERED: ondansetron/PF 4mg/2ml inj IV PRN (11:30)
[2021-12-14] MEDS ORDERED: hydrALAZINE 20mg/ml inj. IV PRN (11:30)
[2021-12-14] MEDS ORDERED: enalaprilat dihydrate 2.5mg/2ml vial IV PRN (11:30)
[2021-12-14] MEDS ORDERED: phenylephrine inj 50 MG in normal saline 250ml IV soln 250 ML IV SCH (11:30)
[2021-12-14] MEDS ORDERED: nitroPRUSSIDE sod inj. 50 MG in dextrose 5%-water 248 ML IV SCH ×2 (11:30→14:40)
[2021-12-14] MEDS ORDERED: fentaNYL/PF 50MCG/1 ML 2ML syringe IV PRN ×2 (11:30)
[2021-12-14] MEDS ORDERED: neostigmine methylsulfate 1 MG/ML 10ml vial ONE (12:18)
[2021-12-14] MEDS ORDERED: glycopyrrolate 0.2mg/ml inj ONE (12:19)
--- NOTE | 2021-12-14 12:49 | NUR ---
Received from OR via BED , accompanied by Anesthesiologist DR ADAMS and report given by Anesthesiolgist. VSS. ARTLINE PRESENT. JESSICA DRAIN ON LEFT SIDE OF NECK MINIMAL DARK BLOOD CHARGED. PIV RIGHT ARM 18 GAUGE, SKIN TEAR ON RIGHT ARM DUE TO IV PRESSURE ON ARM. ABRASIONS TO FACE ON RIGHT SIDE ABOVE BELOW EYE.10 LITERS ON MASK. CELLULITIS BILATERAL LOWER EXTREMITIES. DENTURES CAME WITH PATIENT IN GREEN CUP Addendum: 12/14/21 at 1318 by Moni Jiménez RN Amended: Links added.
--- NOTE | 2021-12-14 13:58 | NUR ---
received pt from pacu into bed 2041. pt on 3 liters nc. placed on monitor shows sb in the 40's. pt a&o x4. pupils equal and reactive at 3. pt follows all commands
--- NOTE | 2021-12-14 13:59 | NUR ---
Received from OR via , accompanied by Anesthesiologist and report given by Anesthesiolgist. PATIENT MEETS DISCHARGE CRITERIA. BP STABLE. CANNULA 3 LITERS @ 99%. BRADYCARDIC. JESSICA CHARGED DRAINAGE MINIMAL. ARTLINE PRESENT.TEAR ON RIGHT ARM BANDAGED WITH GAUZE AND COBAN. NUERO CHECKS X 3 NORMAL. PULSES PRESENT. TOOK PATIENT TO ICU ON MONITOR. NURSE AT BEDSIDE TO RECEIVE PATIENT. GAVE REPORT AND ANSWERED ALL HER QUESTIONS. BAGS X 2 AND DENTURES LEFT WITH ICU NURSE. Addendum: 12/14/21 at 1407 by Moni Jmiénez RN Amended: Links added.
[2021-12-14] MEDS ORDERED: mineral oil/petrolatum ophthal oint EACHEYE PRN (18:40)
[2021-12-14] MEDS ORDERED: potassium Cl 40MEQ/1/2NS 520ml 520 ML IV PRN (18:45)
[2021-12-14] MEDS ORDERED: magnesium 4gm in 100ml NS 100 ML IV PRN (18:45)
[2021-12-14] MEDS ORDERED: magnesium 2GM in 50ml NS 50 ML IV PRN (18:45)
[2021-12-14] MEDS ORDERED: potassium Cl 20 mEq SR tablet PO PRN (18:45)
[2021-12-14] MEDS ORDERED: potassium CL 10mEq/100ml bag 100 ML IV PRN (18:45)
[2021-12-14] MEDS ORDERED: potassium Cl 40MEQ/250ML bag 250 ML IV PRN (18:45)
[2021-12-14] MEDS ORDERED: potassium Cl 20mEq/100mL bag 100 ML IV PRN (18:45)
[2021-12-14] MEDS: heparin, porcine 5000 units/ml vial SQ SCH (19:52)
[2021-12-14] MEDS ORDERED: famotidine 20mg tablet PO SCH (21:00)
[2021-12-14] MEDS ORDERED: LORazepam 1 MG tablet PO ONE (23:30)
[2021-12-14] MEDS ORDERED: LORazepam 0.5 MG tablet PO ONE (23:35)
[2021-12-14 23:54] LABS: ALANINE AMINOTRANSFERASE 15 U/L (12-78); ALBUMIN 2.9 G/DL (3.4-5.0); ALBUMIN/GLOBULIN RATIO 0.9 (1.1-1.5); ALKALINE PHOSPHATASE 89 IU/L (46-116); ANION GAP 12 (8-16); ASPARTATE AMINO TRANSFERASE 14 U/L (10-37); BILIRUBIN,TOTAL 0.5 MG/DL (0.1-1.0); BLOOD UREA NITROGEN 29 MG/DL (7-18); BUN/CREATININE RATIO 20.9 (5.4-32.0); CALCIUM 8.2 MG/DL (8.5-10.1); CHLORIDE 107 MMOL/L (99-107); CREATININE 1.39 MG/DL (0.60-1.10); GLUCOSE 151 MG/DL (70-104); POTASSIUM 4.3 MMOL/L (3.5-5.1); SODIUM 145 MMOL/L (135-145); TOTAL PROTEIN 6.3 G/DL (6.4-8.2); eGFR 48 ML/MIN
[2021-12-15] VITALS (13 sets, daily range): BP systolic 123–171; BP diastolic 39–69
--- NOTE | 2021-12-15 03:15 | NUR ---
This pt is a 86 yo male, admitted 12/14/2021, day 0 of hospitalization, s/p LCEA, Full code, NDA, no restraints, no isolation, Referred to Dr Krishnamurthy for left carotid urgent endarterectomy by Dr. Angelic Marlow. 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 Abnormal EKG, macular degeneration, chronic edema, osteopenia, chronic kidney disease, UTI, elevated PSA and MRSA positive. Currently pt is afebrile, AAO times 4. moves all extremities, follows all commands, Neuro check Q 4 hours, WNL. JESSICA drain Left carotid area. Incision PLANNING AIDE. No drainage noted. HR SR/SB 50's to 80's, SBP maintained 140-160 Phenylephedrine at .4 mcgs. Monitored via Right A-Line. Good square was form, good blood return. Zeroed. SQ heparin bower DVT prophylaxis. IVF infusing via RFA #20. RR 16, PO 100%, Oxygen 2 L NC. clear diminished, equal symmetrical, non labored. Hypoactive bowel sounds, soft, non tender, non distended. Heart healthy diet, well tolerated. Pepcid for GI prophylaxis. Voids numerous times via urinal. voiding clear yellow urine. Skin intact, BLLE noted mild swelling and redness. Pt wanted his Ativan, called Dr Krishnamurthy got one time order to for Ativan .5 mg. PO now. Pt remains safe, continue to monitor.
[2021-12-15] MEDS: phenylephrine 50 MG in NS 250ml IVPB IV SCH (04:25)
[2021-12-15] MEDS ORDERED: atorvastatin 20mg tablet PO SCH (08:00)
[2021-12-15] MEDS ORDERED: cloNIDine 0.1 mg tablet PO SCH (08:00)
[2021-12-15] MEDS ORDERED: furosemide 20MG tablet PO ONE (08:00)
[2021-12-15] MEDS ORDERED: potassium chloride 8mEq ER tablet PO SCH (08:00)
[2021-12-15] MEDS ORDERED: lisinopril 20mg tablet PO SCH (08:00)
[2021-12-15 08:21] LABS: BASOPHILS % (AUTO) 0.4 % (0-1); EOSINOPHILS % (AUTO) 0.2 % (0-6); HEMATOCRIT 32.8 % (42.0-52.0); HEMOGLOBIN 10.8 g/dl (14.0-17.9); LYMPHOCYTES # (AUTO) 1.3 X10'3 (1.1-4.8); LYMPHOCYTES % (AUTO) 35.3 % (21-51); MEAN CORPUSCULAR HEMOGLOBIN 28.6 PG (27.0-31.0); MEAN CORPUSCULAR HGB CONC 32.9 g/dL (33.0-36.5); MEAN CORPUSCULAR VOLUME 86.9 FL (78-98); MEAN PLATELET VOLUME 9.7 FL (7.4-10.4); MONOCYTES # (AUTO) 0.4 X10'3 (0-0.9); MONOCYTES % (AUTO) 10.1 % (2-12); PLATELET COUNT 110 X10'3 (140-440); RED BLOOD COUNT 3.77 X10'6 (4.70-6.10); RED CELL DISTRIBUTION WIDTH 17.7 % (11.5-14.5); WHITE BLOOD COUNT 3.7 X10'3 (4.5-11.0)
[2021-12-15] MEDS ORDERED: allopurinol 100mg tablet PO SCH (08:30)
[2021-12-15] MEDS: heparin, porcine 5000 units/ml vial SQ SCH (08:56)
== END 2021-12-15 14:10 | disposition home or self-care (01) | DRG 38 ==
LOC: PAS IN 06:42 → ICU 2S 13:58
PROVIDERS: ADMIT Surgery; ATTEND Surgery
PROC: 03UJ0KZ Supplement Left Common Carotid Artery with Nonautologous Tissue Substitute, Open Approach (ICD-10-PCS; 2021-12-14)
PROC: 03CJ0ZZ Extirpation of Matter from Left Common Carotid Artery, Open Approach (ICD-10-PCS; principal; 2021-12-14 10:40)
DX: I65.22 Occlusion and stenosis of left carotid artery (principal); I13.0 Hypertensive heart and chronic kidney disease with heart failure and stage 1 through stage 4 chronic kidney disease, or unspecified chronic kidney disease; I50.42 Chronic combined systolic (congestive) and diastolic (congestive) heart failure; M10.9 Gout, unspecified; E78.5 Hyperlipidemia, unspecified; N18.30 Chronic kidney disease, stage 3 unspecified; I25.10 Atherosclerotic heart disease of native coronary artery without angina pectoris; M85.80 Other specified disorders of bone density and structure, unspecified site; Z87.891 Personal history of nicotine dependence; Z79.899 Other long term (current) drug therapy
CPT/HCPCS: 36415; 71046; 80053; 81003; 82948; 84484; 85007; 85025; 85610; 85730; 86885; 86900; 86901; 87081; 93005; 95813; 95816; A4618; A6258; A7000; C1768; G0378; J0690; J1100; J1644; J2250; J2370; J2405; J2710; J2720; J3010; J3490; J7040; J7050; J7120; U0003; U0005

== ENCOUNTER 2021-12-27 15:46 | Emergency (ER) | payer MEDICARE, OTHER ==
[~2021-12-27] VITALS: Ht 188 cm; Wt 75.0 kg
[~2021-12-27 15:46] MED LIST changes: -cefazolin/dext.iso 2gm/50ml IV ONE; -famotidine 20mg tablet PO ONE; -nitroPRUSSIDE (NIPRIDE) (200MCG/ML) 100ML Drip IV SCH
[2021-12-27 17:44] LABS: CLARITY,URINE CLOUDY (Clear); COLOR,URINE YELLOW (Yellow); GLUCOSE, URINE NEGATIVE (Neg); KETONES,URINE NEGATIVE (Neg); LEUKOCYTE ESTERASE ,URINE TRACE (Neg); NITRITES, URINE NEGATIVE (Neg); OCCULT BLOOD,URINE MODERATE (Neg); PH,URINE 6.5 (4.8-8.0); PROTEIN,URINE 100 mg/dl (Neg); UA COLLECTION TYPE CLN CATCH MIDSTREAM; UROBILINOGEN,URINE 0.2 E.U/dL (0.2-1.0)
[2021-12-27 17:54] LABS: RBC,URINE 20-50 /HPF (0-2); WBC,URINE TNTC /HPF (0-4)
[2021-12-27 17:55] LABS: BACTERIA,URINE 1+ /HPF (Neg); SQUAMOUS EPITHELIAL CELL,UR FEW /LPF (FEW); WBC CLUMPS,URINE MANY /HPF (NEGATIVE)
[2021-12-27 18:45] VITALS: BP 136/119
[2021-12-27 19:35] LABS: BASOPHILS % (AUTO) 0.4 % (0-1); EOSINOPHILS # (AUTO) 0.2 X10'3 (0-0.9); EOSINOPHILS % (AUTO) 4.4 % (0-6); HEMATOCRIT 39.2 % (42.0-52.0); HEMOGLOBIN 12.9 g/dl (14.0-17.9); LYMPHOCYTES % (AUTO) 39.2 % (21-51); MEAN CORPUSCULAR HGB CONC 32.9 g/dL (33.0-36.5); MEAN CORPUSCULAR VOLUME 85.3 FL (78-98); MEAN PLATELET VOLUME 9.5 FL (7.4-10.4); MONOCYTES # (AUTO) 0.4 X10'3 (0-0.9); MONOCYTES % (AUTO) 7.9 % (2-12); NEUTROPHILS # (AUTO) 2.4 X10'3 (1.8-7.7); NEUTROPHILS % (AUTO) 48.1 % (42-75); PLATELET COUNT 136 X10'3 (140-440); RED BLOOD COUNT 4.59 X10'6 (4.70-6.10); RED CELL DISTRIBUTION WIDTH 17.3 % (11.5-14.5)
[2021-12-27 19:46] LABS: ALANINE AMINOTRANSFERASE 14 U/L (12-78); ALBUMIN 3.7 G/DL (3.4-5.0); ALBUMIN/GLOBULIN RATIO 0.9 (1.1-1.5); ALKALINE PHOSPHATASE 106 IU/L (46-116); ANION GAP 11 (8-16); ASPARTATE AMINO TRANSFERASE 12 U/L (10-37); BILIRUBIN,TOTAL 0.8 MG/DL (0.1-1.0); BLOOD UREA NITROGEN 26 MG/DL (7-18); BUN/CREATININE RATIO 18.3 (5.4-32.0); CALCIUM 9.1 MG/DL (8.5-10.1); CHLORIDE 101 MMOL/L (99-107); CREATININE 1.42 MG/DL (0.60-1.10); GLUCOSE 103 MG/DL (70-104); POTASSIUM 4.1 MMOL/L (3.5-5.1); SODIUM 142 MMOL/L (135-145); TOTAL CARBON DIOXIDE 29.7 MMOL/L (24-32); TOTAL PROTEIN 7.8 G/DL (6.4-8.2); eGFR 47 ML/MIN
[2021-12-27] MEDS ORDERED: CEPH-585 PO (20:12)
[2021-12-27] MEDS ORDERED: CIPR-202 PO (20:12)
== END 2021-12-27 20:36 | disposition home or self-care (01) ==
LOC: ER 15:47
DX: N39.0 Urinary tract infection, site not specified (principal); R31.9 Hematuria, unspecified; I11.0 Hypertensive heart disease with heart failure; I50.9 Heart failure, unspecified; M10.9 Gout, unspecified; Z87.440 Personal history of urinary (tract) infections; Z60.2 Problems related to living alone; Z79.2 Long term (current) use of antibiotics; Z79.899 Other long term (current) drug therapy
CPT/HCPCS: 36415; 80053; 81001; 85025; 87088; 99284

== ENCOUNTER 2021-12-31 13:28 | Emergency (ER) | payer MEDICARE, OTHER ==
[~2021-12-31] VITALS: Ht 188 cm; Wt 75.0 kg
[~2021-12-31 13:28] MED LIST changes: +CEPH-585 PO; +CIPR-202 PO
[2021-12-31 15:22] LABS: BASOPHILS % (AUTO) 0.7 % (0-1); EOSINOPHILS # (AUTO) 0.3 X10'3 (0-0.9); EOSINOPHILS % (AUTO) 8.6 % (0-6); HEMATOCRIT 34.6 % (42.0-52.0); HEMOGLOBIN 11.5 g/dl (14.0-17.9); LYMPHOCYTES # (AUTO) 1.3 X10'3 (1.1-4.8); LYMPHOCYTES % (AUTO) 41.5 % (21-51); MEAN CORPUSCULAR HEMOGLOBIN 28.7 PG (27.0-31.0); MEAN CORPUSCULAR HGB CONC 33.3 g/dL (33.0-36.5); MEAN PLATELET VOLUME 9.5 FL (7.4-10.4); MONOCYTES # (AUTO) 0.2 X10'3 (0-0.9); MONOCYTES % (AUTO) 6.9 % (2-12); NEUTROPHILS # (AUTO) 1.3 X10'3 (1.8-7.7); NEUTROPHILS % (AUTO) 42.3 % (42-75); PLATELET COUNT 153 X10'3 (140-440); RED BLOOD COUNT 4.02 X10'6 (4.70-6.10); RED CELL DISTRIBUTION WIDTH 17.2 % (11.5-14.5); WHITE BLOOD COUNT 3.1 X10'3 (4.5-11.0)
[2021-12-31 15:36] LABS: ALANINE AMINOTRANSFERASE 12 U/L (12-78); ALBUMIN 3.3 G/DL (3.4-5.0); ALBUMIN/GLOBULIN RATIO 0.9 (1.1-1.5); ALKALINE PHOSPHATASE 87 IU/L (46-116); ANION GAP 13 (8-16); ASPARTATE AMINO TRANSFERASE 11 U/L (10-37); BILIRUBIN,TOTAL 0.5 MG/DL (0.1-1.0); BLOOD UREA NITROGEN 39 MG/DL (7-18); BUN/CREATININE RATIO 21.2 (5.4-32.0); CALCIUM 8.6 MG/DL (8.5-10.1); CHLORIDE 103 MMOL/L (99-107); CREATININE 1.84 MG/DL (0.60-1.10); GLUCOSE 110 MG/DL (70-104); SODIUM 141 MMOL/L (135-145); TOTAL CARBON DIOXIDE 25.4 MMOL/L (24-32); eGFR 35 ML/MIN
[2021-12-31 16:21] VITALS: BP 108/55
== END 2021-12-31 16:22 | disposition home or self-care (01) ==
LOC: ER 13:29
DX: R60.0 Localized edema (principal); L97.912 Non-pressure chronic ulcer of unspecified part of right lower leg with fat layer exposed; L97.922 Non-pressure chronic ulcer of unspecified part of left lower leg with fat layer exposed; I50.9 Heart failure, unspecified; I11.0 Hypertensive heart disease with heart failure; M10.9 Gout, unspecified; Z87.440 Personal history of urinary (tract) infections; Z79.2 Long term (current) use of antibiotics; Z79.899 Other long term (current) drug therapy
CPT/HCPCS: 36415; 80053; 83880; 85025; 93005; 99284

== ENCOUNTER 2022-03-21 20:16 | Emergency (ER) | payer MEDICARE, OTHER ==
[~2022-03-21] VITALS: Ht 188 cm; Wt 73.6 kg
[~2022-03-21 20:16] MED LIST changes: -CIPR-202 PO
[2022-03-21 20:31] VITALS: BP 141/42
--- NOTE | 2022-03-21 20:34 | NUR ---
PT STATES HE DESIRES TO LEAVE AT THIS TIME
== END 2022-03-21 21:33 | disposition left against medical advice (07) ==
LOC: ER 20:17
DX: R60.0 Localized edema (principal); Z53.21 Procedure and treatment not carried out due to patient leaving prior to being seen by health care provider

== ENCOUNTER 2022-03-22 13:27 | Emergency (ER) | payer MEDICARE, OTHER ==
[~2022-03-22] VITALS: Ht 188 cm; Wt 73.6 kg
[2022-03-22 13:46] VITALS: BP 149/50
[2022-03-22 16:41] LABS: ALANINE AMINOTRANSFERASE 16 U/L (12-78); ALBUMIN 3.6 G/DL (3.4-5.0); ALBUMIN/GLOBULIN RATIO 0.9 (1.1-1.5); ALKALINE PHOSPHATASE 103 IU/L (46-116); ANION GAP 8 (8-16); ASPARTATE AMINO TRANSFERASE 14 U/L (10-37); BILIRUBIN,TOTAL 0.4 MG/DL (0.1-1.0); BLOOD UREA NITROGEN 40 MG/DL (7-18); BUN/CREATININE RATIO 24.5 (5.4-32.0); CALCIUM 8.5 MG/DL (8.5-10.1); CHLORIDE 106 MMOL/L (99-107); CREATININE 1.63 MG/DL (0.60-1.10); GLUCOSE 124 MG/DL (70-104); POTASSIUM 4.1 MMOL/L (3.5-5.1); SODIUM 144 MMOL/L (135-145); TOTAL CARBON DIOXIDE 30.3 MMOL/L (24-32); TOTAL PROTEIN 7.7 G/DL (6.4-8.2); eGFR 40 ML/MIN
[2022-03-22 16:55] LABS: EOSINOPHILS # (AUTO) 0.2 X10'3 (0-0.9); MONOCYTES # (AUTO) 0.3 X10'3 (0-0.9)
[2022-03-22] MEDS ORDERED: furosemide 20MG tablet PO ONE (16:55)
[2022-03-22 16:57] LABS: BASOPHILS % (AUTO) 0.4 % (0-1); EOSINOPHILS % (AUTO) 5.5 % (0-6); HEMATOCRIT 36.6 % (42.0-52.0); HEMOGLOBIN 12.1 g/dl (14.0-17.9); LYMPHOCYTES # (AUTO) 2.2 X10'3 (1.1-4.8); LYMPHOCYTES % (AUTO) 58.2 % (21-51); MEAN CORPUSCULAR HEMOGLOBIN 28.4 PG (27.0-31.0); MEAN CORPUSCULAR HGB CONC 33.1 g/dL (33.0-36.5); MEAN CORPUSCULAR VOLUME 85.8 FL (78-98); MEAN PLATELET VOLUME 9.7 FL (7.4-10.4); MONOCYTES % (AUTO) 7.2 % (2-12); NEUTROPHILS # (AUTO) 1.1 X10'3 (1.8-7.7); NEUTROPHILS % (AUTO) 28.7 % (42-75); PLATELET COUNT 115 X10'3 (140-440); RED BLOOD COUNT 4.27 X10'6 (4.70-6.10); RED CELL DISTRIBUTION WIDTH 18.5 % (11.5-14.5); WHITE BLOOD COUNT 3.7 X10'3 (4.5-11.0)
[2022-03-22 18:14] LABS: ANISOCYTOSIS 2+; ELLIPTOCYTES 2+; PLATELET ESTIMATE DECREASED
[2022-03-22 18:18] LABS: BURR CELLS FEW; SCHISTOCYTES FEW
== END 2022-03-22 17:13 | disposition home or self-care (01) ==
LOC: ER 13:28
DX: R60.0 Localized edema (principal); I11.0 Hypertensive heart disease with heart failure; I50.9 Heart failure, unspecified; M10.9 Gout, unspecified; Z87.440 Personal history of urinary (tract) infections; Z60.2 Problems related to living alone; Z79.2 Long term (current) use of antibiotics; Z79.899 Other long term (current) drug therapy
CPT/HCPCS: 36415; 80053; 83880; 85008; 85025; 99283

== ENCOUNTER 2022-05-12 18:51 | Emergency (ER) | payer MEDICARE, OTHER ==
[~2022-05-12] VITALS: Ht 188 cm; Wt 75.0 kg
[~2022-05-12 18:51] MED LIST changes: -ATOR40TA72 PO; +CEFD300C3 PO; -CEPH-585 PO; +LACT1CAP26 PO; +PANT40TA54 PO; +SPIR50TA5 PO
[2022-05-12 19:41] LABS: CLARITY,URINE CLEAR (Clear); COLOR,URINE YELLOW (Yellow); GLUCOSE, URINE NEGATIVE (Neg); KETONES,URINE NEGATIVE (Neg); LEUKOCYTE ESTERASE ,URINE NEGATIVE (Neg); NITRITES, URINE NEGATIVE (Neg); OCCULT BLOOD,URINE TRACE-INTACT (Neg); PH,URINE 5.5 (4.8-8.0); PROTEIN,URINE NEGATIVE (Neg); UROBILINOGEN,URINE 0.2 E.U/dL (0.2-1.0)
[2022-05-12 19:45] LABS: UA COLLECTION TYPE NON-SPECIFIED
[2022-05-12 19:48] LABS: BASOPHILS % (AUTO) 0.3 % (0-1); EOSINOPHILS # (AUTO) 0.1 X10'3 (0-0.9); EOSINOPHILS % (AUTO) 3.1 % (0-6); HEMATOCRIT 38.2 % (42.0-52.0); HEMOGLOBIN 12.9 g/dl (14.0-17.9); LYMPHOCYTES % (AUTO) 53.9 % (21-51); MEAN CORPUSCULAR HEMOGLOBIN 28.9 PG (27.0-31.0); MEAN CORPUSCULAR HGB CONC 33.7 g/dL (33.0-36.5); MEAN CORPUSCULAR VOLUME 85.6 FL (78-98); MEAN PLATELET VOLUME 9.1 FL (7.4-10.4); MONOCYTES # (AUTO) 0.2 X10'3 (0-0.9); MONOCYTES % (AUTO) 6.5 % (2-12); NEUTROPHILS # (AUTO) 1.4 X10'3 (1.8-7.7); NEUTROPHILS % (AUTO) 36.2 % (42-75); PLATELET COUNT 132 X10'3 (140-440); RED BLOOD COUNT 4.46 X10'6 (4.70-6.10); RED CELL DISTRIBUTION WIDTH 17.2 % (11.5-14.5); WHITE BLOOD COUNT 3.8 X10'3 (4.5-11.0)
[2022-05-12 19:52] LABS: BACTERIA,URINE FEW /HPF (Neg); MUCUS STRANDS MODERATE /LPF (Neg); RBC,URINE 0-2 /HPF (0-2); SQUAMOUS EPITHELIAL CELL,UR FEW /LPF (FEW); TRANSITIONAL EPI CELLS,URINE FEW /HPF; WBC,URINE 0-4 /HPF (0-4)
[2022-05-12 20:04] LABS: ALANINE AMINOTRANSFERASE 20 U/L (12-78); ALBUMIN 4.2 G/DL (3.4-5.0); ALKALINE PHOSPHATASE 110 IU/L (46-116); ANION GAP 13 (8-16); ASPARTATE AMINO TRANSFERASE 14 U/L (10-37); BILIRUBIN,TOTAL 0.7 MG/DL (0.1-1.0); BLOOD UREA NITROGEN 57 MG/DL (7-18); BUN/CREATININE RATIO 19.5 (5.4-32.0); CALCIUM 9.6 MG/DL (8.5-10.1); CHLORIDE 100 MMOL/L (99-107); CREATININE 2.93 MG/DL (0.60-1.10); GLUCOSE 101 MG/DL (70-104); LIPASE 100 U/L (73-393); POTASSIUM 5.1 MMOL/L (3.5-5.1); SODIUM 138 MMOL/L (135-145); TOTAL CARBON DIOXIDE 24.6 MMOL/L (24-32); TOTAL PROTEIN 8.3 G/DL (6.4-8.2); eGFR 20 ML/MIN
[2022-05-12] MEDS ORDERED: normal saline 1000ml 1,000 ML IV ONE (22:25)
[2022-05-12] MEDS ORDERED: ATOR40TA72 PO (22:41)
[2022-05-13 02:22] VITALS: BP 137/68
[2022-05-14] MEDS ORDERED: DICY10CA88 PO (17:05)
== END 2022-05-13 02:51 | disposition home or self-care (01) ==
LOC: ER 18:52
DX: I13.0 Hypertensive heart and chronic kidney disease with heart failure and stage 1 through stage 4 chronic kidney disease, or unspecified chronic kidney disease (principal); N18.9 Chronic kidney disease, unspecified; I50.9 Heart failure, unspecified
CPT/HCPCS: 36415; 74176; 80053; 81001; 83690; 85025; 93975; 96360; 96361; 99284; J7030

== ENCOUNTER 2022-05-13 21:19 | Emergency (ER) | payer MEDICARE, OTHER ==
[~2022-05-13] VITALS: Ht 188 cm; Wt 7.3 kg
[~2022-05-13 21:19] MED LIST changes: +ATOR40TA72 PO
[2022-05-13 21:42] VITALS: BP 167/64
[2022-05-14] MEDS ORDERED: DICY10CA88 PO (17:05)
== END 2022-05-13 23:38 | disposition left against medical advice (07) ==
LOC: ER 21:20
DX: R10.9 Unspecified abdominal pain (principal); Z53.21 Procedure and treatment not carried out due to patient leaving prior to being seen by health care provider

== ENCOUNTER 2022-05-14 16:21 | Emergency (ER) | payer MEDICARE, OTHER ==
[~2022-05-14] VITALS: Ht 188 cm; Wt 72.7 kg
[~2022-05-14 16:21] MED LIST changes: -CEFD300C3 PO; -LACT1CAP26 PO; -PROP10DR4 OP; -SPIR50TA5 PO
[2022-05-14 16:37] VITALS: BP 121/53
[2022-05-14] MEDS ORDERED: DICY10CA88 PO (17:05)
== END 2022-05-14 17:18 | disposition home or self-care (01) ==
LOC: ER 16:21
DX: R10.84 Generalized abdominal pain (principal); I11.0 Hypertensive heart disease with heart failure; I50.9 Heart failure, unspecified; M10.9 Gout, unspecified; Z87.440 Personal history of urinary (tract) infections; Z79.899 Other long term (current) drug therapy
CPT/HCPCS: 99281; 99282

== ENCOUNTER 2022-05-19 23:47 | Emergency (ER) | payer MEDICARE, OTHER ==
[~2022-05-19] VITALS: Ht 188 cm; Wt 72.7 kg
[~2022-05-19 23:47] MED LIST changes: +DICY10CA88 PO
[2022-05-19 23:48] VITALS: BP 141/52
[2022-05-20 00:28] LABS: BASOPHILS % (AUTO) 0.3 % (0-1); EOSINOPHILS # (AUTO) 0.1 X10'3 (0-0.9); HEMATOCRIT 34.8 % (42.0-52.0); HEMOGLOBIN 11.9 g/dl (14.0-17.9); LYMPHOCYTES # (AUTO) 1.4 X10'3 (1.1-4.8); LYMPHOCYTES % (AUTO) 43.1 % (21-51); MEAN CORPUSCULAR HGB CONC 34.3 g/dL (33.0-36.5); MEAN CORPUSCULAR VOLUME 84.5 FL (78-98); MEAN PLATELET VOLUME 9.5 FL (7.4-10.4); MONOCYTES # (AUTO) 0.3 X10'3 (0-0.9); MONOCYTES % (AUTO) 10.5 % (2-12); NEUTROPHILS # (AUTO) 1.4 X10'3 (1.8-7.7); NEUTROPHILS % (AUTO) 42.1 % (42-75); PLATELET COUNT 91 X10'3 (140-440); RED BLOOD COUNT 4.12 X10'6 (4.70-6.10); RED CELL DISTRIBUTION WIDTH 16.5 % (11.5-14.5); WHITE BLOOD COUNT 3.2 X10'3 (4.5-11.0)
[2022-05-20 00:29] LABS: ALANINE AMINOTRANSFERASE 17 U/L (12-78); ALBUMIN 3.9 G/DL (3.4-5.0); ALKALINE PHOSPHATASE 95 IU/L (46-116); ANION GAP 10 (8-16); ASPARTATE AMINO TRANSFERASE 15 U/L (10-37); BILIRUBIN,TOTAL 0.5 MG/DL (0.1-1.0); BLOOD UREA NITROGEN 67 MG/DL (7-18); CALCIUM 8.7 MG/DL (8.5-10.1); CHLORIDE 101 MMOL/L (99-107); CREATININE 2.91 MG/DL (0.60-1.10); GLUCOSE 99 MG/DL (70-104); LIPASE 118 U/L (73-393); POTASSIUM 4.6 MMOL/L (3.5-5.1); SODIUM 137 MMOL/L (135-145); TOTAL PROTEIN 7.7 G/DL (6.4-8.2); eGFR 21 ML/MIN
[2022-05-21] MEDS ORDERED: SUCR1TAB PO (23:44)
[2022-05-21] MEDS ORDERED: OMEP20CA16 PO (23:44)
== END 2022-05-20 01:57 | disposition left against medical advice (07) ==
LOC: ER 23:47
DX: R10.9 Unspecified abdominal pain (principal); Z53.21 Procedure and treatment not carried out due to patient leaving prior to being seen by health care provider
CPT/HCPCS: 80053; 83690; 85025

== ENCOUNTER 2022-05-21 18:32 | Emergency (ER) | payer MEDICARE, OTHER ==
[~2022-05-21] VITALS: Ht 188 cm; Wt 72.7 kg
[2022-05-21 19:03] LABS: CLARITY,URINE CLEAR (Clear); COLOR,URINE YELLOW (Yellow); GLUCOSE, URINE NEGATIVE (Neg); KETONES,URINE NEGATIVE (Neg); LEUKOCYTE ESTERASE ,URINE NEGATIVE (Neg); NITRITES, URINE NEGATIVE (Neg); OCCULT BLOOD,URINE TRACE-INTACT (Neg); PH,URINE 5.5 (4.8-8.0); PROTEIN,URINE NEGATIVE (Neg); UROBILINOGEN,URINE 0.2 E.U/dL (0.2-1.0)
[2022-05-21 19:07] LABS: BASOPHILS % (AUTO) 0.3 % (0-1); EOSINOPHILS # (AUTO) 0.2 X10'3 (0-0.9); EOSINOPHILS % (AUTO) 3.9 % (0-6); HEMATOCRIT 35.2 % (42.0-52.0); HEMOGLOBIN 11.9 g/dl (14.0-17.9); LYMPHOCYTES # (AUTO) 2.5 X10'3 (1.1-4.8); LYMPHOCYTES % (AUTO) 59.6 % (21-51); MEAN CORPUSCULAR HEMOGLOBIN 28.8 PG (27.0-31.0); MEAN CORPUSCULAR HGB CONC 33.7 g/dL (33.0-36.5); MEAN CORPUSCULAR VOLUME 85.6 FL (78-98); MEAN PLATELET VOLUME 9.7 FL (7.4-10.4); MONOCYTES # (AUTO) 0.4 X10'3 (0-0.9); MONOCYTES % (AUTO) 9.6 % (2-12); NEUTROPHILS # (AUTO) 1.1 X10'3 (1.8-7.7); NEUTROPHILS % (AUTO) 26.6 % (42-75); PLATELET COUNT 103 X10'3 (140-440); RED BLOOD COUNT 4.11 X10'6 (4.70-6.10); RED CELL DISTRIBUTION WIDTH 17.1 % (11.5-14.5); WHITE BLOOD COUNT 4.2 X10'3 (4.5-11.0)
[2022-05-21 19:08] LABS: UA COLLECTION TYPE URINAL
[2022-05-21 19:10] LABS: BACTERIA,URINE NONE SEEN /HPF (Neg); MUCUS STRANDS NONE SEEN /LPF (Neg); RBC,URINE 0-2 /HPF (0-2); SQUAMOUS EPITHELIAL CELL,UR FEW /LPF (FEW); WBC,URINE 0-4 /HPF (0-4)
[2022-05-21 19:23] LABS: ALANINE AMINOTRANSFERASE 20 U/L (12-78); ALBUMIN 3.8 G/DL (3.4-5.0); ALKALINE PHOSPHATASE 93 IU/L (46-116); ANION GAP 12 (8-16); ASPARTATE AMINO TRANSFERASE 16 U/L (10-37); BILIRUBIN,TOTAL 0.4 MG/DL (0.1-1.0); BLOOD UREA NITROGEN 75 MG/DL (7-18); BUN/CREATININE RATIO 20.8 (5.4-32.0); CALCIUM 8.1 MG/DL (8.5-10.1); CHLORIDE 99 MMOL/L (99-107); CREATININE 3.61 MG/DL (0.60-1.10); GLUCOSE 112 MG/DL (70-104); LIPASE 182 U/L (73-393); POTASSIUM 4.9 MMOL/L (3.5-5.1); SODIUM 134 MMOL/L (135-145); TOTAL CARBON DIOXIDE 23.3 MMOL/L (24-32); TOTAL PROTEIN 7.6 G/DL (6.4-8.2); eGFR 16 ML/MIN
[2022-05-21] MEDS ORDERED: OMEP20CA16 PO (23:44)
[2022-05-21] MEDS ORDERED: SUCR1TAB PO (23:44)
[2022-05-22 00:12] VITALS: BP 126/61
== END 2022-05-22 00:14 | disposition home or self-care (01) ==
LOC: ER 18:33
DX: R10.9 Unspecified abdominal pain (principal); I11.0 Hypertensive heart disease with heart failure; I50.9 Heart failure, unspecified
CPT/HCPCS: 36415; 80053; 81001; 83690; 85025; 99283

== ENCOUNTER 2022-06-04 17:43 | Emergency (ER) | payer MEDICARE, OTHER ==
[~2022-06-04] VITALS: Ht 188 cm; Wt 63.6 kg
[~2022-06-04 17:43] MED LIST changes: +OMEP20CA16 PO; +SUCR1TAB PO
[2022-06-04 17:46] VITALS: BP 183/63
== END 2022-06-04 20:10 | disposition left against medical advice (07) ==
LOC: ER 17:44
DX: R10.84 Generalized abdominal pain (principal); Z53.21 Procedure and treatment not carried out due to patient leaving prior to being seen by health care provider

== ENCOUNTER 2022-06-05 16:40 | Emergency (ER) | payer MEDICARE, OTHER ==
[~2022-06-05] VITALS: Ht 188 cm; Wt 68.0 kg
[2022-06-05] MEDS ORDERED: LIDOcaine Viscous 15ml cup MM ONE (19:10)
[2022-06-05] MEDS ORDERED: mag hydrox/Alum hydrox/simeth 30ml oral suspension PO ONE (19:10)
[2022-06-05 19:13] VITALS: BP 179/68
== END 2022-06-05 19:27 | disposition home or self-care (01) ==
LOC: ER 16:40
DX: K30 Functional dyspepsia (principal); I11.0 Hypertensive heart disease with heart failure; I50.9 Heart failure, unspecified; M10.9 Gout, unspecified; Z87.440 Personal history of urinary (tract) infections; Z60.2 Problems related to living alone; Z79.899 Other long term (current) drug therapy
CPT/HCPCS: 99284

== ENCOUNTER 2022-06-09 15:40 | Emergency (ER) | payer MEDICARE, OTHER ==
[~2022-06-09] VITALS: Ht 188 cm; Wt 66.4 kg
[2022-06-09 16:19] VITALS: BP 111/39
== END 2022-06-09 19:02 | disposition left against medical advice (07) ==
LOC: ER 15:43
DX: R10.9 Unspecified abdominal pain (principal); Z53.21 Procedure and treatment not carried out due to patient leaving prior to being seen by health care provider

== ENCOUNTER 2022-06-14 18:12 | Emergency (ER) | payer MEDICARE, OTHER ==
[~2022-06-14] VITALS: Ht 188 cm; Wt 65.5 kg
[2022-06-14 19:22] LABS: CLARITY,URINE CLEAR (Clear); COLOR,URINE YELLOW (Yellow); GLUCOSE, URINE NEGATIVE (Neg); KETONES,URINE NEGATIVE (Neg); LEUKOCYTE ESTERASE ,URINE NEGATIVE (Neg); NITRITES, URINE NEGATIVE (Neg); OCCULT BLOOD,URINE NEGATIVE (Neg); PROTEIN,URINE NEGATIVE (Neg); UROBILINOGEN,URINE 0.2 E.U/dL (0.2-1.0)
[2022-06-14 19:27] LABS: UA COLLECTION TYPE CLN CATCH MIDSTREAM
[2022-06-14 19:32] LABS: BASOPHILS % (AUTO) 0.3 % (0-1); EOSINOPHILS # (AUTO) 0.1 X10'3 (0-0.9); EOSINOPHILS % (AUTO) 1.7 % (0-6); HEMATOCRIT 34.2 % (42.0-52.0); HEMOGLOBIN 11.7 g/dl (14.0-17.9); LYMPHOCYTES # (AUTO) 2.1 X10'3 (1.1-4.8); LYMPHOCYTES % (AUTO) 53.9 % (21-51); MEAN CORPUSCULAR HEMOGLOBIN 29.3 PG (27.0-31.0); MEAN CORPUSCULAR HGB CONC 34.3 g/dL (33.0-36.5); MEAN CORPUSCULAR VOLUME 85.5 FL (78-98); MEAN PLATELET VOLUME 9.3 FL (7.4-10.4); MONOCYTES # (AUTO) 0.3 X10'3 (0-0.9); MONOCYTES % (AUTO) 7.9 % (2-12); NEUTROPHILS # (AUTO) 1.4 X10'3 (1.8-7.7); NEUTROPHILS % (AUTO) 36.2 % (42-75); PLATELET COUNT 107 X10'3 (140-440); WHITE BLOOD COUNT 3.8 X10'3 (4.5-11.0)
[2022-06-14 19:48] LABS: ALANINE AMINOTRANSFERASE 25 U/L (12-78); ALBUMIN 3.9 G/DL (3.4-5.0); ALBUMIN/GLOBULIN RATIO 1.1 (1.1-1.5); ALKALINE PHOSPHATASE 85 IU/L (46-116); ANION GAP 11 (8-16); ASPARTATE AMINO TRANSFERASE 24 U/L (10-37); BILIRUBIN,TOTAL 0.3 MG/DL (0.1-1.0); BLOOD UREA NITROGEN 113 MG/DL (7-18); BUN/CREATININE RATIO 41.5 (5.4-32.0); CHLORIDE 97 MMOL/L (99-107); CREATININE 2.72 MG/DL (0.60-1.10); GLUCOSE 117 MG/DL (70-104); LIPASE 302 U/L (73-393); POTASSIUM 4.7 MMOL/L (3.5-5.1); SODIUM 131 MMOL/L (135-145); TOTAL PROTEIN 7.4 G/DL (6.4-8.2); eGFR 22 ML/MIN
[2022-06-14 23:26] VITALS: BP 144/92
== END 2022-06-15 03:29 | disposition left against medical advice (07) ==
LOC: ER 18:12
DX: R10.9 Unspecified abdominal pain (principal); Z53.21 Procedure and treatment not carried out due to patient leaving prior to being seen by health care provider
CPT/HCPCS: 36415; 80053; 81003; 83690; 84145; 85025

== ENCOUNTER 2022-07-11 03:51 | Emergency (ER) | payer MEDICARE, OTHER ==
[~2022-07-11] VITALS: Ht 188 cm; Wt 65.9 kg
--- NOTE | 2022-07-11 04:23 | NUR ---
PT ROOMED TO BED 4. APPLIED NOSE CLAMPERS. NOSEBLEED CONTROLLED
[2022-07-11] MEDS ORDERED: oxymetazoline 15 ML nasal spray NS ONE ×2 (04:40→04:45)
[2022-07-11] MEDS ORDERED: CEPH-585 PO ×3 (05:05→05:27)
[2022-07-11 05:38] VITALS: BP 122/45
== END 2022-07-11 05:40 | disposition home or self-care (01) ==
LOC: ER 03:51
DX: R04.0 Epistaxis (principal); I11.0 Hypertensive heart disease with heart failure; I50.9 Heart failure, unspecified
CPT/HCPCS: 30905; 99284

== ENCOUNTER 2022-07-14 10:44 | Emergency (ER) | payer MEDICARE, OTHER ==
[~2022-07-14 10:44] MED LIST changes: +CEPH-585 PO
[2022-07-14 11:15] VITALS: BP 113/38
== END 2022-07-14 14:41 | disposition home or self-care (01) ==
LOC: ER 10:45
DX: R04.0 Epistaxis (principal); I11.0 Hypertensive heart disease with heart failure; I50.9 Heart failure, unspecified; M10.9 Gout, unspecified; Z87.440 Personal history of urinary (tract) infections; Z79.2 Long term (current) use of antibiotics; Z79.899 Other long term (current) drug therapy
CPT/HCPCS: 99281

== ENCOUNTER 2022-07-23 14:57 | Emergency (ER) | payer MEDICARE, OTHER ==
[~2022-07-23] VITALS: Ht 188 cm; Wt 63.6 kg
[2022-07-23 16:20] VITALS: BP 116/51
== END 2022-07-23 16:56 | disposition home or self-care (01) ==
LOC: ER 14:59
DX: R04.0 Epistaxis (principal); I11.0 Hypertensive heart disease with heart failure; I50.9 Heart failure, unspecified
CPT/HCPCS: 99281

== ENCOUNTER 2022-08-06 20:50 | Emergency (ER) | payer MEDICARE, OTHER ==
[~2022-08-06] VITALS: Ht 188 cm; Wt 63.6 kg
[2022-08-06 21:05] VITALS: BP 140/51
[2022-08-06] MEDS ORDERED: bacitracin 15gm ointment TP ONE (22:00)
[2022-08-06] MEDS ORDERED: LIDOcaine 4% (40 mg/ml) topical solution 50ml TP ONE (22:55)
[2022-08-06] MEDS ORDERED: silver nitrate applicator stick TP ONE (22:55)
[2022-08-06] MEDS ORDERED: oxymetazoline 15 ML nasal spray NS ONE (22:55)
== END 2022-08-06 23:34 | disposition home or self-care (01) ==
LOC: ER 20:51
DX: R04.0 Epistaxis (principal); I11.0 Hypertensive heart disease with heart failure; I50.9 Heart failure, unspecified
CPT/HCPCS: 30901; 82948; 99284

== ENCOUNTER 2022-08-07 15:56 | Emergency (ER) | payer MEDICARE, OTHER ==
[~2022-08-07] VITALS: Ht 188 cm; Wt 140.0 kg
[2022-08-07 16:05] VITALS: BP 109/34
== END 2022-08-07 17:38 | disposition home or self-care (01) ==
LOC: ER 15:58
DX: R04.0 Epistaxis (principal); I11.0 Hypertensive heart disease with heart failure; Z87.448 Personal history of other diseases of urinary system; Z79.899 Other long term (current) drug therapy
CPT/HCPCS: 30901; 99284

== ENCOUNTER 2022-08-12 13:23 | Emergency (ER) | payer MEDICARE, OTHER ==
[~2022-08-12] VITALS: Ht 188 cm; Wt 63.6 kg
[2022-08-12 14:19] VITALS: BP 115/56
== END 2022-08-12 16:47 | disposition left against medical advice (07) ==
LOC: ER 13:23
DX: R04.0 Epistaxis (principal); I11.0 Hypertensive heart disease with heart failure; I50.9 Heart failure, unspecified
CPT/HCPCS: 99281

== ENCOUNTER 2022-08-26 08:47 | Emergency (ER) | payer MEDICARE, OTHER ==
[~2022-08-26] VITALS: Ht 188 cm; Wt 61.8 kg
[2022-08-26 09:01] VITALS: BP 103/43
[2022-08-26 11:19] LABS: BASOPHILS % (AUTO) 0.5 % (0-1); EOSINOPHILS # (AUTO) 0.1 X10'3 (0-0.9); EOSINOPHILS % (AUTO) 1.6 % (0-6); HEMOGLOBIN 8.4 g/dl (14.0-17.9); LYMPHOCYTES # (AUTO) 1.6 X10'3 (1.1-4.8); MEAN CORPUSCULAR HEMOGLOBIN 30.8 PG (27.0-31.0); MEAN CORPUSCULAR HGB CONC 33.7 g/dL (33.0-36.5); MEAN CORPUSCULAR VOLUME 91.2 FL (78-98); MEAN PLATELET VOLUME 9.3 FL (7.4-10.4); MONOCYTES # (AUTO) 0.3 X10'3 (0-0.9); MONOCYTES % (AUTO) 8.6 % (2-12); NEUTROPHILS # (AUTO) 1.3 X10'3 (1.8-7.7); NEUTROPHILS % (AUTO) 39.3 % (42-75); PLATELET COUNT 104 X10'3 (140-440); RED BLOOD COUNT 2.74 X10'6 (4.70-6.10); RED CELL DISTRIBUTION WIDTH 17.9 % (11.5-14.5); WHITE BLOOD COUNT 3.3 X10'3 (4.5-11.0)
[2022-08-26 11:40] LABS: ALANINE AMINOTRANSFERASE 149 U/L (12-78); ALBUMIN 3.4 G/DL (3.4-5.0); ALBUMIN/GLOBULIN RATIO 0.9 (1.1-1.5); ALKALINE PHOSPHATASE 105 IU/L (46-116); ANION GAP 12 (8-16); ASPARTATE AMINO TRANSFERASE 57 U/L (10-37); BILIRUBIN,TOTAL 0.4 MG/DL (0.1-1.0); BLOOD UREA NITROGEN 112 MG/DL (7-18); BUN/CREATININE RATIO 59.9 (5.4-32.0); CALCIUM 8.9 MG/DL (8.5-10.1); CHLORIDE 107 MMOL/L (99-107); CREATININE 1.87 MG/DL (0.60-1.10); GLUCOSE 113 MG/DL (70-104); POTASSIUM 4.3 MMOL/L (3.5-5.1); SODIUM 143 MMOL/L (135-145); TOTAL CARBON DIOXIDE 24.1 MMOL/L (24-32); TOTAL PROTEIN 7.4 G/DL (6.4-8.2); eGFR 34 ML/MIN
== END 2022-08-26 14:24 | disposition home or self-care (01) ==
LOC: ER 08:49
DX: J02.9 Acute pharyngitis, unspecified (principal); I13.0 Hypertensive heart and chronic kidney disease with heart failure and stage 1 through stage 4 chronic kidney disease, or unspecified chronic kidney disease; N18.9 Chronic kidney disease, unspecified; R49.9 Unspecified voice and resonance disorder; R22.1 Localized swelling, mass and lump, neck
CPT/HCPCS: 36415; 70490; 80053; 85025; 99284

== ENCOUNTER 2022-08-26 22:26 | Emergency (ER) | payer MEDICARE, OTHER ==
[~2022-08-26] VITALS: Ht 188 cm; Wt 46.3 kg
[2022-08-26 22:48] VITALS: BP 131/61
== END 2022-08-26 23:30 | disposition left against medical advice (07) ==
LOC: ER 22:26
DX: R04.0 Epistaxis (principal); Z53.21 Procedure and treatment not carried out due to patient leaving prior to being seen by health care provider

== ENCOUNTER 2022-09-03 13:43 | Emergency (ER) | payer MEDICARE, OTHER ==
[~2022-09-03] VITALS: Ht 188 cm; Wt 61.8 kg
[2022-09-03] MEDS ORDERED: HYDROcodone/acetaminophen 5mg/325mg tablet PO ONE (16:25)
[2022-09-03] MEDS ORDERED: HYDR-3965 PO (18:19)
[2022-09-03 18:50] VITALS: BP 111/37
== END 2022-09-03 18:52 | disposition home or self-care (01) ==
LOC: ER 13:44
DX: M54.2 Cervicalgia (principal); I11.0 Hypertensive heart disease with heart failure; I50.9 Heart failure, unspecified; Z87.891 Personal history of nicotine dependence
CPT/HCPCS: 76536; 87081; 87880; 99284

== ENCOUNTER 2022-11-09 17:03 | Emergency (ER) | payer MEDICARE, OTHER ==
[~2022-11-09] VITALS: Ht 188 cm; Wt 73.0 kg
[2022-11-09] MEDS ORDERED: oxymetazoline 15 ML nasal spray NS ONE (18:50)
[2022-11-09] MEDS ORDERED: tranexamic acid 100mg/ml inj. TP ONE (18:50)
[2022-11-09] MEDS ORDERED: LIDOcaine 2% 5ml jelly MM ONE (18:50)
[2022-11-09] MEDS ORDERED: LIDOcaine 2% 10ml TOPICAL JELLY (Urojet) MM ONE (19:15)
[2022-11-09] MEDS ORDERED: LIDOcaine 2% jelly 6ml syringe ***for topical use only MM ONE ×2 (19:20)
[2022-11-09] MEDS ORDERED: ERYT1OIN6 EACHEYE (20:21)
[2022-11-09 20:26] VITALS: BP 179/64
== END 2022-11-09 20:59 | disposition home or self-care (01) ==
LOC: ER 17:04
DX: R04.0 Epistaxis (principal); I11.0 Hypertensive heart disease with heart failure; I50.9 Heart failure, unspecified
CPT/HCPCS: 30901; 99284

== ENCOUNTER 2022-11-13 09:29 | Emergency (ER) | payer MEDICARE, OTHER ==
[~2022-11-13] VITALS: Ht 188 cm; Wt 73.2 kg
[~2022-11-13 09:29] MED LIST changes: +ERYT1OIN6 EACHEYE
[2022-11-13 09:46] VITALS: BP 111/38
--- NOTE | 2022-11-13 10:49 | NUR ---
KEV Verma at bedside removing rhino rockets.
--- NOTE | 2022-11-13 11:37 | NUR ---
Pt with trickling to bilateral nares. Nasal clamp placed. Will monitor for bleeding prior to d/c.
== END 2022-11-13 11:45 | disposition home or self-care (01) ==
LOC: ER 09:29
DX: R04.0 Epistaxis (principal); I11.0 Hypertensive heart disease with heart failure; Z87.448 Personal history of other diseases of urinary system; Z79.899 Other long term (current) drug therapy; Z79.1 Long term (current) use of non-steroidal anti-inflammatories (NSAID)
CPT/HCPCS: 99281

== ENCOUNTER 2022-11-13 16:15 | Emergency (ER) | payer MEDICARE, OTHER ==
[~2022-11-13] VITALS: Ht 185.4 cm; Wt 73.2 kg
[2022-11-13 19:01] VITALS: BP 120/37
[2022-11-13] MEDS ORDERED: LIDOcaine 4% (40 mg/ml) topical solution 50ml TP ONE (19:05)
[2022-11-13] MEDS ORDERED: oxymetazoline 15 ML nasal spray NS ONE (19:05)
[2022-11-13] MEDS ORDERED: silver nitrate applicator stick TP ONE (19:05)
== END 2022-11-13 21:00 | disposition home or self-care (01) ==
LOC: ER 16:16
DX: R04.0 Epistaxis (principal)
CPT/HCPCS: 99284; A6449

== ENCOUNTER 2022-11-15 18:53 | Emergency (ER) | payer MEDICARE, OTHER ==
[~2022-11-15] VITALS: Ht 185.4 cm; Wt 80.0 kg
[2022-11-15 21:34] VITALS: BP 181/73
== END 2022-11-15 21:35 | disposition home or self-care (01) ==
LOC: ER 18:54
DX: R04.0 Epistaxis (principal); I11.0 Hypertensive heart disease with heart failure; I50.9 Heart failure, unspecified; M10.9 Gout, unspecified; Z60.2 Problems related to living alone; Z79.899 Other long term (current) drug therapy
CPT/HCPCS: 99281

== ENCOUNTER 2022-11-29 17:51 | Emergency (ER) | payer MEDICARE, OTHER ==
[~2022-11-29] VITALS: Ht 188 cm; Wt 70.5 kg
[~2022-11-29 17:51] MED LIST changes: -ERYT1OIN6 EACHEYE
[2022-11-29] MEDS ORDERED: sulfamethoxazole/trimethoprim DS (800/160mg) tablet PO ONE (21:00)
[2022-11-29] MEDS ORDERED: ampicillin/sulbac 3gm/NS 100ml 100 ML IV SCH (21:02)
[2022-11-29 21:34] LABS: BASOPHILS % (AUTO) 0.6 % (0-1); EOSINOPHILS # (AUTO) 0.1 X10'3 (0-0.9); EOSINOPHILS % (AUTO) 2.5 % (0-6); HEMATOCRIT 33.4 % (42.0-52.0); LYMPHOCYTES # (AUTO) 2.4 X10'3 (1.1-4.8); MEAN CORPUSCULAR HEMOGLOBIN 28.9 PG (27.0-31.0); MEAN CORPUSCULAR HGB CONC 33.1 g/dL (33.0-36.5); MEAN CORPUSCULAR VOLUME 87.5 FL (78-98); MEAN PLATELET VOLUME 8.4 FL (7.4-10.4); MONOCYTES # (AUTO) 0.4 X10'3 (0-0.9); MONOCYTES % (AUTO) 9.1 % (2-12); NEUTROPHILS # (AUTO) 1.4 X10'3 (1.8-7.7); NEUTROPHILS % (AUTO) 31.8 % (42-75); PLATELET COUNT 187 X10'3 (140-440); RED BLOOD COUNT 3.82 X10'6 (4.70-6.10); RED CELL DISTRIBUTION WIDTH 14.5 % (11.5-14.5); WHITE BLOOD COUNT 4.4 X10'3 (4.5-11.0)
--- NOTE | 2022-11-29 21:40 | NUR ---
dr. soria verbalized no blood cultures to be drawn for iv antibiotics
[2022-11-29 21:49] LABS: ALANINE AMINOTRANSFERASE 14 U/L (12-78); ALBUMIN 3.6 G/DL (3.4-5.0); ALBUMIN/GLOBULIN RATIO 0.8 (1.1-1.5); ALKALINE PHOSPHATASE 101 IU/L (46-116); ANION GAP 9 (8-16); ASPARTATE AMINO TRANSFERASE 19 U/L (10-37); BILIRUBIN,TOTAL 0.6 MG/DL (0.1-1.0); BLOOD UREA NITROGEN 39 MG/DL (7-18); CALCIUM 9.4 MG/DL (8.5-10.1); CHLORIDE 100 MMOL/L (99-107); CREATININE 1.95 MG/DL (0.60-1.10); GLUCOSE 104 MG/DL (70-104); POTASSIUM 4.1 MMOL/L (3.5-5.1); SODIUM 140 MMOL/L (135-145); TOTAL CARBON DIOXIDE 30.7 MMOL/L (24-32); TOTAL PROTEIN 8.4 G/DL (6.4-8.2); eGFR 33 ML/MIN
[2022-11-29] MEDS ORDERED: DOXY100C43 PO (22:01)
[2022-11-29] MEDS ORDERED: LEVO250T74 PO (22:01)
--- NOTE | 2022-11-29 23:15 | NUR ---
APPLIED 2 XEROFORM 2 NON ADHERENT 1 KERLEX AND 1 MOISES WRAP TO RIGHT LEG AND APPLIED 1 NON ADHERENT 1 KERLEX AND 1 MOISES WRAP ON LEFT LEG
[2022-11-29 23:25] VITALS: BP 142/54
== END 2022-11-29 23:29 | disposition home or self-care (01) ==
LOC: ER 17:51
DX: L03.116 Cellulitis of left lower limb (principal); L03.115 Cellulitis of right lower limb; I11.0 Hypertensive heart disease with heart failure; I50.9 Heart failure, unspecified; M10.9 Gout, unspecified; Z60.2 Problems related to living alone; Z79.899 Other long term (current) drug therapy
CPT/HCPCS: 36415; 80053; 85025; 96365; 99284; J0295; J7030; A6258

== ENCOUNTER 2023-02-08 10:51 | Emergency (ER) | payer MEDICARE, OTHER ==
[~2023-02-08] VITALS: Ht 188 cm; Wt 75.0 kg
[2023-02-08] MEDS ORDERED: LidoCAINE 2% Topical Jelly 11mL syringe MM ONE (12:00)
[2023-02-08] MEDS ORDERED: LIDOcaine 2% 10ml TOPICAL JELLY (Urojet) MM ONE (12:00)
--- NOTE | 2023-02-08 12:01 | NUR ---
DR GREY AT BEDSIDE.
[2023-02-08] MEDS ORDERED: oxymetazoline 15 ML nasal spray NS ONE (12:15)
[2023-02-08] MEDS ORDERED: CEPH-585 PO ×2 (12:51)
[2023-02-08 13:48] VITALS: BP 183/69
[2023-02-13] MEDS ORDERED: CLON0.2T PO (07:14)
== END 2023-02-08 14:02 | disposition home or self-care (01) ==
LOC: ER 10:51
DX: R04.0 Epistaxis (principal); I11.0 Hypertensive heart disease with heart failure; I50.9 Heart failure, unspecified
CPT/HCPCS: 30905; 99284

== ENCOUNTER 2023-02-11 12:32 | Emergency (ER) | payer MEDICARE, OTHER ==
[~2023-02-11] VITALS: Ht 188 cm; Wt 63.8 kg
[2023-02-11 13:42] LABS: BASOPHILS % (AUTO) 0.4 % (0-1); EOSINOPHILS # (AUTO) 0.1 X10'3 (0-0.9); EOSINOPHILS % (AUTO) 2.8 % (0-6); HEMATOCRIT 25.4 % (42.0-52.0); HEMOGLOBIN 8.2 g/dl (14.0-17.9); LYMPHOCYTES # (AUTO) 1.3 X10'3 (1.1-4.8); LYMPHOCYTES % (AUTO) 42.5 % (21-51); MEAN CORPUSCULAR HEMOGLOBIN 27.7 PG (27.0-31.0); MEAN CORPUSCULAR HGB CONC 32.4 g/dL (33.0-36.5); MEAN CORPUSCULAR VOLUME 85.5 FL (78-98); MEAN PLATELET VOLUME 9.4 FL (7.4-10.4); MONOCYTES # (AUTO) 0.3 X10'3 (0-0.9); MONOCYTES % (AUTO) 9.8 % (2-12); NEUTROPHILS # (AUTO) 1.4 X10'3 (1.8-7.7); NEUTROPHILS % (AUTO) 44.5 % (42-75); PLATELET COUNT 116 X10'3 (140-440); RED BLOOD COUNT 2.97 X10'6 (4.70-6.10); RED CELL DISTRIBUTION WIDTH 19.2 % (11.5-14.5); WHITE BLOOD COUNT 3.1 X10'3 (4.5-11.0)
[2023-02-11 13:45] VITALS: BP 112/45
[2023-02-11 13:48] LABS: ALANINE AMINOTRANSFERASE 10 U/L (12-78); ALBUMIN/GLOBULIN RATIO 0.8 (1.1-1.5); ALKALINE PHOSPHATASE 70 IU/L (46-116); ANION GAP 10 (8-16); ASPARTATE AMINO TRANSFERASE 12 U/L (10-37); BILIRUBIN,TOTAL 0.4 MG/DL (0.1-1.0); BLOOD UREA NITROGEN 36 MG/DL (7-18); BUN/CREATININE RATIO 14.8 (10.0-20.0); CALCIUM 8.3 MG/DL (8.5-10.1); CHLORIDE 106 MMOL/L (99-107); CREATININE 2.43 MG/DL (0.60-1.10); GLUCOSE 115 MG/DL (70-104); SODIUM 140 MMOL/L (135-145); TOTAL CARBON DIOXIDE 23.8 MMOL/L (24-32); TOTAL PROTEIN 6.9 G/DL (6.4-8.2); eGFR 25 ML/MIN
[2023-02-11 14:03] LABS: ACANTHOCYTES FEW; ANISOCYTOSIS 2+; ELLIPTOCYTES 1+; PLATELET ESTIMATE DECREASED; TEAR DROP CELLS FEW
[2023-02-11] MEDS ORDERED: normal saline 1000ML IV soln IVB ONE (14:10)
[2023-02-11 14:32] LABS: CLARITY,URINE CLEAR (Clear); COLOR,URINE YELLOW (Yellow); GLUCOSE, URINE NEGATIVE (Neg); KETONES,URINE NEGATIVE (Neg); LEUKOCYTE ESTERASE ,URINE NEGATIVE (Neg); NITRITES, URINE NEGATIVE (Neg); OCCULT BLOOD,URINE NEGATIVE (Neg); PROTEIN,URINE TRACE mg/dl (Neg); UROBILINOGEN,URINE 0.2 E.U/dL (0.2-1.0)
[2023-02-11 14:34] LABS: UA COLLECTION TYPE CLN CATCH MIDSTREAM
[2023-02-11 14:52] LABS: BACTERIA,URINE FEW /HPF (Neg); MUCUS STRANDS FEW /LPF (Neg); RBC,URINE NONE SEEN /HPF (0-2); SQUAMOUS EPITHELIAL CELL,UR FEW /LPF (FEW); WBC,URINE 0-4 /HPF (0-4)
[2023-02-13] MEDS ORDERED: CLON0.2T PO (07:14)
== END 2023-02-11 18:36 | disposition home or self-care (01) ==
LOC: ER 12:32
DX: R04.0 Epistaxis (principal); I51.9 Heart disease, unspecified; I11.9 Hypertensive heart disease without heart failure; Z79.899 Other long term (current) drug therapy; Z79.1 Long term (current) use of non-steroidal anti-inflammatories (NSAID); Z79.2 Long term (current) use of antibiotics
CPT/HCPCS: 36415; 80053; 81001; 85008; 85025; 99283; J7030